=== PATIENT | female | born 1935 | race Hispanic/Latino ===

== ENCOUNTER 2021-11-04 21:04 | Inpatient (IN) | payer MEDICARE ==
--- NOTE | 2021-11-04 21:33 | Emergency Department Report ---
ED Neuro Deficit HPI - General Stated Complaint: AMS Time Seen by Provider: 11/04/21 21:18 Source: family, EMS - History of Present Illness Initial Comments: Patient is 86 years old female with history of dementia, hypertension and diabetes. Patient brought to the emergency room from a local assisted living for evaluation of altered mental status. EMS reported that patient ate dinner and soon later she became unresponsive. Upon arrival to the ER patient is obtunded, responding to painful stimuli. Vital signs stable. Patient responded by screaming and moving her right upper extremity however patient is not moving her left upper extremity. Quick neuro exam showed a left upper extremity drift. I spoke to patient daughter and held at phone #[phone] and she stated that her mother never had a stroke before. She stated that she saw her on and she was in her usual status. She informed that she is a wheelchair patient and she does not walk. She stated that she received a call from assisted living informing her that she is not responding after dinner. She stated that they called her at 8:22 PM tonight. Stroke protocol immediately initiated and patient moved to CT for stat CT brain without contrast and stroke telemetry neurologist immediately consulted. Location: left arm, altered Presenting Symptoms: Present: Weak/Paralyzed One Side - Related Data Allergies/Adverse Reactions: Allergies Allergy/AdvReac Type Severity Reaction Status Date / Time No Known Allergies Allergy Unverified 11/04/21 22:46 ED Review of Systems ROS: Stated complaint: AMS Other details as noted in HPI Comment: Unobtainable due to pts medical conditions ED Neuro Physical Exam - General General appearance: obtunded Suspected Stroke: Yes - Head Head exam: Present: atraumatic, normocephalic, normal inspection - Eye Eye exam: Present: normal appearance - ENT ENT exam: Present: normal exam, normal orophraynx, mucous membranes moist - Neck Neck exam: Present: normal inspection - Respiratory Respiratory exam: Present: normal lung sounds bilaterally. Absent: respiratory distress, wheezes, rales - Cardiovascular Cardiovascular Exam: Present: regular rate, normal rhythm, normal heart sounds - GI/Abdominal GI/Abdominal exam: Present: soft, normal bowel sounds. Absent: distended, te nderness, guarding, rebound, rigid, organomegaly, mass, bruit, pulsatile mass, hernia - Neurological Exam Neurological exam: Present: altered, motor sensory deficit - NIHSS Assessment Interval: Baseline 1a. Level of Consciousness: resp stimuli/obtunded 1b. LOC Questions: answers no questions correctly 1c. LOC Commands: performs no tasks correctly 2. Best Gaze: normal 3. Visual: no visual loss 4. Facial Palsy: normal symmetrical movement 5b. Motor Arm Right: no drift 5a. Motor Arm Left: drift 6a. Motor Leg Left: no gravity effort 6b. Motor Leg Right: no gravity effort 7. Limb Ataxia: absent 8. Sensory: coma/unresponsive 9. Best Language: no aphasia 10. Dysarthria: normal 11. Extinction/Inattention: no abnormality Total Score: 15 Stroke Severity: Moderate Stroke - Psychiatric Psychiatric exam: Present: flat affect - Skin Skin exam: Present: warm ED Course Vital Signs 11/04/21 21:20 Temperature 97.5 F L Pulse Rate 84 Respiratory 20 Rate Blood Pressure 134/69 [Left] O2 Sat by Pulse 98 Oximetry - Lab Data Result diagrams: 11/04/21 21:47 11/04/21 21:47 Lab Results 11/04/21 11/04/21 11/04/21 Range/Units 21:47 21:47 21:47 WBC 10.1 (4.5-11.0) K/mm3 RBC 4.06 (3.65-5.03) M/mm3 Hgb 12.7 (10.1-14.3) gm/dl Hct 36.5 (30.3-42.9) % MCV 90 (79-97) fl MCH 31 (28-32) pg MCHC 35 H (30-34) % RDW 13.7 (13.2-15.2) % Plt Count 173 (140-440) K/mm3 Lymph % (Auto) 10.7 L (13.4-35.0) % Mccone % (Auto) 4.3 (0.0-7.3) % Eos % (Auto) 0.2 (0.0-4.3) % Baso % (Auto) 0.5 (0.0-1.8) % Lymph # (Auto) 1.1 L (1.2-5.4) K/mm3 Mccone # (Auto) 0.4 (0.0-0.8) K/mm3 Eos # (Auto) 0.0 (0.0-0.4) K/mm3 Baso # (Auto) 0.0 (0.0-0.1) K/mm3 Seg Neutrophils % 84.3 H (40.0-70.0) % Seg Neutrophils # 8.5 H (1.8-7.7) K/mm3 PT 14.1 (12.2-14.9) Sec. INR 0.98 (0.87-1.13) APTT 28.6 (24.2-36.6) Sec. Thrombin Time 17.8 (15.1-19.6) Sec. Sodium 140 (137-145) mmol/L Potassium 4.2 (3.6-5.0) mmol/L Chloride 105.3 (98-107) mmol/L Carbon Dioxide 22 (22-30) mmol/L Anion Gap 17 mmol/L BUN 27 H (7-17) mg/dL Creatinine 1.3 H (0.6-1.2) mg/dL Estimated GFR 39 ml/min BUN/Creatinine Ratio 21 % Glucose 229 H (65-100) mg/dL Calcium 8.8 (8.4-10.2) mg/dL Total Bilirubin (0.1-1.2) mg/dL Direct Bilirubin (0-0.2) mg/dL Indirect Bilirubin mg/dL AST (5-40) units/L ALT (7-56) units/L Alkaline Phosphatase (35-129) units/L Total Creatine Kinase 69 (30-135) units/L CK-MB (CK-2) 1.5 (0.0-4.0) ng/mL CK-MB (CK-2) Rel Index 2.1 (0-4) Troponin T < 0.010 (0.00-0.029) ng/mL NT-Pro-B Natriuret Pep (0-900) pg/mL Total Protein (6.3-8.2) g/dL Albumin (3.9-5) g/dL Albumin/Globulin Ratio % Urine Color (Yellow) Urine Turbidity (Clear) Urine pH (5.0-7.0) Ur Specific [place] (1.003-1.030) Urine Protein (Negative) mg/dL Urine Glucose (UA) (Negative) mg/dL Urine Ketones (Negative) mg/dL Urine Blood (Negative) Urine Nitrite (Negative) Urine Bilirubin (Negative) Urine Urobilinogen (<2.0) mg/dL Ur Leukocyte Esterase (Negative) Urine WBC (Auto) (0.0-6.0) /HPF Urine RBC (Auto) (0.0-6.0) /HPF Urine Bacteria (Auto) (Negative) /HPF Urine Mucus /HPF 11/04/21 11/04/21 Range/Units 21:47 Unknown WBC (4.5-11.0) K/mm3 RBC (3.65-5.03) M/mm3 Hgb (10.1-14.3) gm/dl Hct (30.3-42.9) % MCV (79-97) fl MCH (28-32) pg MCHC (30-34) % RDW (13.2-15.2) % Plt Count (140-440) K/mm3 Lymph % (Auto) (13.4-35.0) % Mccone % (Auto) (0.0-7.3) % Eos % (Auto) (0.0-4.3) % Baso % (Auto) (0.0-1.8) % Lymph # (Auto) (1.2-5.4) K/mm3 Mccone # (Auto) (0.0-0.8) K/mm3 Eos # (Auto) (0.0-0.4) K/mm3 Baso # (Auto) (0.0-0.1) K/mm3 Seg Neutrophils % (40.0-70.0) % Seg Neutrophils # (1.8-7.7) K/mm3 PT (12.2-14.9) Sec. INR (0.87-1.13) APTT (24.2-36.6) Sec. Thrombin Time (15.1-19.6) Sec. Sodium (137-145) mmol/L Potassium (3.6-5.0) mmol/L Chloride (98-107) mmol/L Carbon Dioxide (22-30) mmol/L Anion Gap mmol/L BUN (7-17) mg/dL Creatinine (0.6-1.2) mg/dL Estimated GFR ml/min BUN/Creatinine Ratio % Glucose (65-100) mg/dL Calcium (8.4-10.2) mg/dL Total Bilirubin 0.30 (0.1-1.2) mg/dL Direct Bilirubin < 0.2 (0-0.2) mg/dL Indirect Bilirubin 0.1 mg/dL AST 15 (5-40) units/L ALT 18 (7-56) units/L Alkaline Phosphatase 76 (35-129) units/L Total Creatine Kinase (30-135) units/L CK-MB (CK-2) (0.0-4.0) ng/mL CK-MB (CK-2) Rel Index (0-4) Troponin T (0.00-0.029) ng/mL NT-Pro-B Natriuret Pep 185.0 (0-900) pg/mL Total Protein 5.8 L (6.3-8.2) g/dL Albumin 3.6 L (3.9-5) g/dL Albumin/Globulin Ratio 1.6 % Urine Color Yellow (Yellow) Urine Turbidity Hazy (Clear) Urine pH 6.0 (5.0-7.0) Ur Specific [place] 1.025 (1.003-1.030) Urine Protein 100 mg/dl (Negative) mg/dL Urine Glucose (UA) Negative (Negative) mg/dL Urine Ketones Negative (Negative) mg/dL Urine Blood Negative (Negative) Urine Nitrite Positive (Negative) Urine Bilirubin Negative (Negative) Urine Urobilinogen < 2.0 (<2.0) mg/dL Ur Leukocyte Esterase Moderate (Negative) Urine WBC (Auto) 36.0 H (0.0-6.0) /HPF Urine RBC (Auto) 45.0 (0.0-6.0) /HPF Urine Bacteria (Auto) 1+ (Negative) /HPF Urine Mucus Few /HPF - EKG Data -: EKG Interpreted by Wy EKG shows normal: sinus rhythm Rate: normal Interpretation: no acute changes - Radiology Data Radiology results: report reviewed - Medical Decision Making Patient is 86 years old female with history of dementia, hypertension and diabetes. Patient brought to the emergency room from a local assisted living for evaluation of altered mental status. EMS reported that patient ate dinner and soon later she became unresponsive. Upon arrival to the ER patient is obtunded, responding to painful stimuli. Vital signs stable. Patient responded by screaming and moving her right upper extremity however patient is not moving her left upper extremity. Quick neuro exam showed a left upper extremity drift. I spoke to patient daughter and held at phone #[phone] and she stated that her mother never had a stroke before. She stated that she saw her on and she was in her usual status. She informed that she is a wheelchair patient and she does not walk. She stated that she received a call from assisted living informing her that she is not responding after dinner. She stated that they called her at 8:22 PM tonight. Stroke protocol immediately initiated and patient moved to CT for stat CT brain without contrast and stroke telemetry neurologist immediately consulted. As patient coming back from ER nurse noted that patient started moving her left upper extremity. Patient examined by Dr. Robert and stated that patient is not a tPA candidate. CT brain, CTA head and neck is negative for acute finding. Labs reviewed and is unremarkable except for UTI. Patient received Rocephin 1 g IV. I discussed the patient with Dr. Maldonado, he agreed to admit the patient to medical service for further management. Critical Care Time: Yes Critical care time in (mins) excluding proc time.: 35 Critical care attestation.: If time is entered above; I have spent that time in minutes in the direct care of this critically ill patient, excluding procedure time. ED Disposition Clinical Impression: Acute metabolic encephalopathy, TIA (transient ischemic attack) Disposition: ADMITTED INPATIENT Is pt being admited?: Yes Condition: Stable
--- NOTE | 2021-11-04 21:58 | Cat Scan Report ---
NONENHANCED CT SCAN OF THE HEAD: INDICATION / CLINICAL INFORMATION: 86 years Female; CODE STROKE PROTOCOL!!! Stroke-Like symptoms. TECHNIQUE: Routine CT head without contrast. All CT scans at this location are performed using CT dos e reduction for ALARA by means of automated exposure control. COMPARISON: None. FINDINGS: BRAIN / INTRACRANIAL CONTENTS: No intracerebral hemorrhage or stroke mimics No acute hemorrhage, mass effect, midline shift, hydrocephalus, or acute, large territorial infarct. Moderate cortical involution; periventricular low-attenuation areas due to chronic small vessel dise ase CRANIOCERVICAL JUNCTION: No significant abnormality. ORBITS: No significant abnormality of visualized orbits. SINUSES / MASTOIDS: No significant abnormality of the visualized paranasal sinuses or mastoid air shaan ls. ADDITIONAL FINDINGS: None. IMPRESSION: No intracerebral hemorrhage or stroke mimics No CT findings to suggest acute territorial infarction Signer Name: Lena Martines MD Signed: 11/04/2021 9:54 PM Workstation Name: [id number]
--- NOTE | 2021-11-04 22:01 | XRay Report ---
CHEST 1 VIEW 11/04/2021 8:54 PM INDICATION / CLINICAL INFORMATION: stroke, AMS. COMPARISON: None available. FINDINGS: SUPPORT DEVICES: None. HEART / MEDIASTINUM: No significant abnormality. LUNGS / PLEURA: There is moderate pulmonary vascular indistinctness. No pneumothorax. ADDITIONAL FINDINGS: No significant additional findings. IMPRESSION: 1. Moderate pulmonary edema. Signer Name: Vaibhav Lee DO Signed: 11/04/2021 9:56 PM Workstation Name: [id number]
[2021-11-04 22:03] LABS: Basophils % (Auto) 0.5 % (0.0-1.8); Eosinophils % (Auto) 0.2 % (0.0-4.3); Hematocrit 36.5 % (30.3-42.9); Hemoglobin 12.7 gm/dl (10.1-14.3); Lymphocytes # (Auto) 1.1 K/mm3 (1.2-5.4); Lymphocytes % (Auto) 10.7 % (13.4-35.0); Mean Corpuscular HGB Conc 35 % (30-34); Mean Corpuscular Volume 90 fl (79-97); Monocytes # (Auto) 0.4 K/mm3 (0.0-0.8); Monocytes % (Auto) 4.3 % (0.0-7.3); Platelet Count 173 K/mm3 (140-440); Red Blood Count 4.06 M/mm3 (3.65-5.03); Red Cell Distribution Width 13.7 % (13.2-15.2)
--- NOTE | 2021-11-04 22:04 | Consultation ---
Physical Examination - Vital Signs Vital Signs: Vital Signs Temp Pulse Resp BP Pulse Ox 97.5 F L 84 20 134/69 98 11/04/21 21:20 11/04/21 21:20 11/04/21 21:20 11/04/21 21:20 11/04/21 21:20 Results - Laboratory Findings CBC and BMP: 11/04/21 21:47 Abnormal Lab Findings: Abnormal Labs 11/04/21 21:47 MCHC 35 H Lymph % (Auto) 10.7 L Lymph # (Auto) 1.1 L Seg Neutrophils % 84.3 H Seg Neutrophils # 8.5 H Assessment and Plan [facility] Consult Note # Demographics Consult Type: Acute Stroke Level 1 (0-4.5 hrs) Patient Location: Emergency Room First Name: Candida Last Name: Date of : 1935 Age: 86 Gender: Female Facility: [facility] Time of Initial Page ( Time): 11/04/2021, 21:28 Time of Return Call ( Time): 11/04/2021, 21:29 # HPI History: 86F with last well 20:20 reportedly, then with not responsive. Now screaming and moving all extremities, left weakness noted. Dementia and wheelchair baseline in MENG. Seen on normal. # Scores Time of exam and NIHSS ( Time): 11/04/2021, 21:54 Level of Consciousness 1a: [1] = Not alert; but arousable by minor stim LOC Questions 1b: [2] = Answers neither correctly LOC Commands 1c: [1] = Performs one correctly Best Gaze 2: [0] = Normal Visual 3: [0] = No visual loss Facial Palsy 4: [0] = Normal symmetrical movements Motor Arm Left 5a: [1] = Drift Motor Arm Right 5b: [1] = Drift Motor Leg Left 6a: [3] = No effort against gravity Motor Leg Right 6b: [3] = No effort against gravity Limb Ataxia 7: [0] = Absent Sensory 8: [0] = Normal Best Language 9: [0] = No aphasia Dysarthria 10: [2] = Severe dysarthria Extinction and Inattention 11: [0] = No abnormality NIHSS Total: 14 # PMH-FH-SH Past Medical History: dementia Social History: assisted living non-ambulatory at baseline # Data Head CT: no bleed preliminarily reviewed by me, please refer to radiology read for official reading CTA Head: no large vessel occlusion preliminarily reviewed by me, please refer to radiology read for official reading # Assessment Impression: Altered Mental Status No focal neurologic deficit, most consistent with encephalopathy with available data and imaging, risk > benefit for IV tAP with available data. # Plan Thrombolytic/Intervention: NOT IV Thrombolysis or IA Intervention candidate Thrombolytic Exclusion: other (see below) risk > benefit. Intraarterial Exclusion: no large vessel occlusion (LVO) pending formal radiology review of CTA Imaging: (urgency: routine): MRI Brain without contrast Other: telemetry monitoring would not pursue stroke work-up if MRI is negative I have discussed my recommendations with the referring provider Disposition: admit # [employer] Telemedicine: Interactive 2 way audio and visual telecommunication technology was utilized during this visit
--- NOTE | 2021-11-04 22:05 | Cat Scan Report ---
Please refer to the report of the CTA of the head Signer Name: Lena Martines MD Signed: 11/04/2021 10:00 PM Workstation Name: [id number]
--- NOTE | 2021-11-04 22:05 | Cat Scan Report ---
CTA NECK WITH CONTRAST HISTORY: "Stroke COMPARISON: None. TECHNIQUE: Routine CTA of the neck was performed. 3-D/MIP reformats were postprocessed. Percentage s tenosis is determined by direct quantitative measurements of diseased internal carotid artery diamete r compared with normal distal internal carotid artery reference segments or by criteria similar to NA SCET where applicable.All CT scans at this location are performed using CT dose reduction for ALARA b y means of automated exposure control CONTRAST: 100 ml of Omnipaque 350 FINDINGS: Aortic arch: No significant abnormality. Cervical vertebral arteries: No significant abnormality. Common carotid arteries: No significant abnormality. Carotid bifurcations: Normal Cervical internal carotid arteries: No significant abnormality. Additional findings: None. IMPRESSION: 1. No significant abnormality. CTA HEAD WITH CONTRAST TECHNIQUE: Routine non-contrast CT Head, CTA of the head and post-contrast CT Head are performed. 3-D /MIP reformats postprocessed. All CT scans at this location are performed using CT dose reduction for ALARA by means of automated exposure control FINDINGS: CTA Head: Intracranial vertebral arteries: No significant abnormality. Basilar artery: No significant abnormality. Posterior cerebral arteries: No significant abnormality. Intracranial internal carotid arteries: No significant abnormality. Bilateral symmetric vascular calc ification Anterior cerebral arteries: No significant abnormality. Middle cerebral arteries: No significant abnormality. Dural venous sinuses:Not optimally opacified. No significant abnormality. Additional findings: None. IMPRESSION: 1. No significant abnormality. Signer Name: Lena Martines MD Signed: 11/04/2021 10:00 PM Workstation Name: [id number]
[2021-11-04 22:20] LABS: INR 0.98 (0.87-1.13)
[2021-11-04 22:21] LABS: Creatine Kinase MB 1.5 ng/mL (0.0-4.0); Partial Thromboplastin Time 28.6 Sec. (24.2-36.6); Thrombin Time 17.8 Sec. (15.1-19.6)
[2021-11-04 22:22] LABS: Alanine Aminotransferase 18 units/L (7-56); Albumin 3.6 g/dL (3.9-5); BUN/Creatinine Ratio 21; Blood Urea Nitrogen 27 mg/dL (7-17); Calcium 8.8 mg/dL (8.4-10.2); Hemolysis Index 16
[2021-11-04 22:29] LABS: Bilirubin,Direct < 0.2 mg/dL (0-0.2)
[2021-11-04 23:07] LABS: Bilirubin,Urine Negative (Negative); Color,Urine Yellow (Yellow)
[2021-11-04 23:08] LABS: Bacteria,Urine 1+ /HPF (Negative); Blood,Urine Negative (Negative); Mucus,Urine FEW /HPF
[2021-11-04 23:09] LABS: Urobilinogen,Urine < 2.0 mg/dL (<2.0)
[2021-11-04] MEDS ORDERED: cefTRIAXone/NS 1 GM/50 ML 1 GM/50 ML BAG IV ONE (23:31)
[2021-11-05] MEDS ORDERED: MORPHINE 4 MG/1 ML INJ IV PRN (03:39)
[2021-11-05] MEDS ORDERED: ONDANSETRON 4 MG/2 ML INJ IV PRN (03:39)
[2021-11-05] MEDS ORDERED: DEXTROSE 50% IN WATER (25GM) 50 ML SYRINGE IV PRN (03:39)
[2021-11-05] MEDS ORDERED: MORPHINE 2 MG/1 ML INJ IV PRN (03:39)
[2021-11-05] MEDS ORDERED: ALBUTEROL 2.5 MG/3 ML NEBU IH PRN (03:39)
[2021-11-05] MEDS ORDERED: ACETAMINOPHEN 325 MG TAB PO PRN (03:39)
[2021-11-05] MEDS ORDERED: SODIUM CHLORIDE 0.9% 1000 ML 1,000 ML IV SCH (03:45)
--- NOTE | 2021-11-05 03:49 | History and Physical Report ---
History of Present Illness Date of examination: 11/05/21 Date of admission: 11/05/21 Chief complaint: Altered mental status History of present illness: 86 years old female with history of dementia, hypertension and diabetes was brought to the emergency room from a local assisted living for evaluation of altered mental status. patient ate dinner and soon later she became unresponsive. Upon arrival to the ER patient is obtunded, responding to painful stimuli. Vital signs stable. Patient responded by screaming and moving her right upper extremity however patient is not moving her left upper extremity. Quick neuro exam showed a left upper extremity drift. I spoke to patient daughter and held at phone #[phone] and she stated that her mother never had a stroke before. She stated that she saw her on and she was in her usual status. She informed that she is a wheelchair patient and she does not walk. She stated that she received a call from assisted living informing her that she is not responding after dinner. She stated that they called her at 8:22 PM tonight. Stroke protocol immediately initiated and patient moved to CT for stat CT brain without contrast and stroke telemetry neurologist immediately consulted. As patient coming back from ER nurse noted that patient started moving her left upper extremity. Patient examined by Dr. Robert and stated that patient is not a tPA candidate. CT brain, CTA head and neck is negative for acute finding. Labs reviewed and is unremarkable except for UTI. Patient received Rocephin 1 g IV. Will admit the patient put the patient on antibiotic and CVA pathway Past History Past Medical History: diabetes (Dementia), hypertension, other Past Surgical History: No surgical history Social history: no significant social history Family history: hypertension Medications and Allergies Allergies Allergy/AdvReac Type Severity Reaction Status Date / Time No Known Allergies Allergy Unverified 11/04/21 22:46 Active Meds: Active Medications Acetaminophen (Acetaminophen 325 Mg Tab) 650 mg PO Q4H PRN PRN Reason: Pain MILD(1-3)/Fever >100.5/GARRIDO Albuterol (Albuterol 2.5 Mg/3 Ml Nebu) 2.5 mg IH Q3HRT PRN PRN Reason: Shortness Of Breath Albuterol/Ipratropium (Ipratropium/Albuterol Sulfate 3 Ml Ampul.Neb) 1 ampul IH Q6HRT [facility] Dextrose (Dextrose 50% In Water (25gm) 50 Ml Syringe) 50 ml IV Q30MIN PRN; Protocol PRN Reason: Hypoglycemia Famotidine (Famotidine 20 Mg/2 Ml Inj) 20 mg IV BID [facility] Heparin Sodium (Porcine) (Heparin 5,000 Unit/1 Ml Vial) 5,000 unit SUB-Q Q12HR [facility] Sodium Chloride (Nacl 0.9% 1000 Ml) 1,000 mls @ 100 mls/hr IV DIRECT [facility] Ceftriaxone Sodium (Rocephin/Ns 2 Gm/100 Ml) 2 gm in 100 mls @ 200 mls/hr IV Q24H MANUEL; Protocol Insulin Human Lispro (Insulin Lispro 100 Unit/Ml) 0 unit SUB-Q Q6HR MANUEL; Protocol Morphine Sulfate (Morphine 2 Mg/1 Ml Inj) 2 mg IV Q4H PRN PRN Reason: Pain, Moderate (4-6) Morphine Sulfate (Morphine 4 Mg/1 Ml Inj) 4 mg IV Q4H PRN PRN Reason: Pain , Severe (7-10) Ondansetron HCl (Ondansetron 4 Mg/2 Ml Inj) 4 mg IV Q8H PRN PRN Reason: Nausea And Vomiting Sodium Chloride (Sodium Chloride 0.9% 10 Ml Flush Syringe) 10 ml IV BID [facility] Sodium Chloride (Sodium Chloride 0.9% 10 Ml Flush Syringe) 10 ml IV PRN PRN PRN Reason: LINE FLUSH Sodium Chloride (Sodium Chloride 0.9% 10 Ml Flush Syringe) 10 ml INJ PRN PRN PRN Reason: LINE FLUSH Review of Systems All systems: negative Constitutional: weakness, malaise, other (Altered mental status) Exam - Constitutional Vitals: Temp Pulse Resp BP Pulse Ox 97.5 F L 84 20 134/69 98 11/04/21 21:20 11/04/21 21:20 11/04/21 21:20 11/04/21 21:20 11/04/21 21:20 General appearance: Present: no acute distress, well-nourished - EENT Eyes: Present: PERRL ENT: hearing intact, clear oral mucosa - Neck Neck: Present: supple, normal ROM - Respiratory Respiratory effort: normal Respiratory: bilateral: CTA - Cardiovascular Heart Sounds: Present: S1 & S2. Absent: rub, click - Extremities Extremities: pulses symmetrical, No edema Peripheral Pulses: within normal limits - Abdominal General gastrointestinal: Present: soft, non-tender, non-distended, normal bowel sounds Female genitourinary: Present: normal - Integumentary Integumentary: Present: clear, warm, dry - Musculoskeletal Musculoskeletal: gait normal, strength equal bilaterally - Psychiatric Psychiatric: other (Patient is altered mental status) - Neurologic Neurologic: CNII-XII intact, moves all extremities, other (Patient is altered mental status) HEART Score - HEART Score Troponin: Troponin T < 0.010 ng/mL (0.00-0.029) 11/04/21 21:47 Results - Labs CBC & Chem 7: 11/04/21 21:47 11/04/21 21:47 Labs: Laboratory Last Values WBC 10.1 K/mm3 (4.5-11.0) 11/04/21 21:47 RBC 4.06 M/mm3 (3.65-5.03) 11/04/21 21:47 Hgb 12.7 gm/dl (10.1-14.3) 11/04/21 21:47 Hct 36.5 % (30.3-42.9) 11/04/21 21:47 MCV 90 fl (79-97) 11/04/21 21:47 MCH 31 pg (28-32) 11/04/21 21:47 MCHC 35 % (30-34) H 11/04/21 21:47 RDW 13.7 % (13.2-15.2) 11/04/21 21:47 Plt Count 173 K/mm3 (140-440) 11/04/21 21:47 Lymph % (Auto) 10.7 % (13.4-35.0) L 11/04/21 21:47 [place] % (Auto) 4.3 % (0.0-7.3) 11/04/21 21:47 Eos % (Auto) 0.2 % (0.0-4.3) 11/04/21 21:47 Baso % (Auto) 0.5 % (0.0-1.8) 11/04/21 21:47 Lymph # (Auto) 1.1 K/mm3 (1.2-5.4) L 11/04/21 21:47 [place] # (Auto) 0.4 K/mm3 (0.0-0.8) 11/04/21 21:47 Eos # (Auto) 0.0 K/mm3 (0.0-0.4) 11/04/21 21:47 Baso # (Auto) 0.0 K/mm3 (0.0-0.1) 11/04/21 21:47 Seg Neutrophils % 84.3 % (40.0-70.0) H 11/04/21 21:47 Seg Neutrophils # 8.5 K/mm3 (1.8-7.7) H 11/04/21 21:47 PT 14.1 Sec. (12.2-14.9) 11/04/21 21:47 INR 0.98 (0.87-1.13) 11/04/21 21:47 APTT 28.6 Sec. (24.2-36.6) 11/04/21 21:47 Thrombin Time 17.8 Sec. (15.1-19.6) 11/04/21 21:47 Sodium 140 mmol/L (137-145) 11/04/21 21:47 Potassium 4.2 mmol/L (3.6-5.0) 11/04/21 21:47 Chloride 105.3 mmol/L (98-107) 11/04/21 21:47 Carbon Dioxide 22 mmol/L (22-30) 11/04/21 21:47 Anion Gap 17 mmol/L 11/04/21 21:47 BUN 27 mg/dL (7-17) H 11/04/21 21:47 Creatinine 1.3 mg/dL (0.6-1.2) H 11/04/21 21:47 Estimated GFR 39 ml/min 11/04/21 21:47 BUN/Creatinine Ratio 21 % 11/04/21 21:47 Glucose 229 mg/dL (65-100) H 11/04/21 21:47 Calcium 8.8 mg/dL (8.4-10.2) 11/04/21 21:47 Total Bilirubin 0.30 mg/dL (0.1-1.2) 11/04/21 21:47 Direct Bilirubin < 0.2 mg/dL (0-0.2) 11/04/21 21:47 Indirect Bilirubin 0.1 mg/dL 11/04/21 21:47 AST 15 units/L (5-40) 11/04/21 21:47 ALT 18 units/L (7-56) 11/04/21 21:47 Alkaline Phosphatase 76 units/L (35-129) 11/04/21 21:47 Total Creatine Kinase 69 units/L (30-135) 11/04/21 21:47 CK-MB (CK-2) 1.5 ng/mL (0.0-4.0) 11/04/21 21:47 CK-MB (CK-2) Rel Index 2.1 (0-4) 11/04/21 21:47 Troponin T < 0.010 ng/mL (0.00-0.029) 11/04/21 21:47 NT-Pro-B Natriuret Pep 185.0 pg/mL (0-900) 11/04/21 21:47 Total Protein 5.8 g/dL (6.3-8.2) L 11/04/21 21:47 Albumin 3.6 g/dL (3.9-5) L 11/04/21 21:47 Albumin/Globulin Ratio 1.6 % 11/04/21 21:47 Urine Color Yellow (Yellow) 11/04/21 Unknown Urine Turbidity Hazy (Clear) 11/04/21 Unknown Urine pH 6.0 (5.0-7.0) 11/04/21 Unknown Ur Specific [place] 1.025 (1.003-1.030) 11/04/21 Unknown Urine Protein 100 mg/dl mg/dL (Negative) 11/04/21 Unknown Urine Glucose (UA) Negative mg/dL (Negative) 11/04/21 Unknown Urine Ketones Negative mg/dL (Negative) 11/04/21 Unknown Urine Blood Negative (Negative) 11/04/21 Unknown Urine Nitrite Positive (Negative) 11/04/21 Unknown Urine Bilirubin Negative (Negative) 11/04/21 Unknown Urine Urobilinogen < 2.0 mg/dL (<2.0) 11/04/21 Unknown Ur Leukocyte Esterase Moderate (Negative) 11/04/21 Unknown Urine WBC (Auto) 36.0 /HPF (0.0-6.0) H 11/04/21 Unknown Urine RBC (Auto) 45.0 /HPF (0.0-6.0) 11/04/21 Unknown Urine Bacteria (Auto) 1+ /HPF (Negative) 11/04/21 Unknown Urine Mucus Few /HPF 06/01/22 Unknown - Imaging and Cardiology CT Scan - head: report reviewed Assessment and Plan VTE prophylaxis?: Chemical Plan of care discussed with patient/family: Yes - Patient Problems (1) Acute metabolic encephalopathy Current Visit: Yes Status: Acute Plan to address problem: Admit the patient to the medical telemetry. Metabolic encephalopathy secondary to UTI and suspected TIA. We put the patient on aspirin 325 mg p.o. daily. Lipitor 40 mg p.o. daily. Rocephin 2 g IV daily. Would send urine for culture. We also do MRI of the brain (2) UTI (urinary tract infection) Current Visit: Yes Status: Acute Plan to address problem: Rocephin 2 g IV daily. We sent the blood and urine for culture. Recheck CBC in the morning (3) TIA (transient ischemic attack) Current Visit: Yes Status: Acute Plan to address problem: Aspirin 325 mg p.o. daily. Lipitor 40 mg p.o. daily. PT OT any speech evaluation. MRI of the brain and MRA of the brain and neck with and without contrast. Echocardiogram. Consult neurology if needed (4) Diabetes Current Visit: Yes Status: Acute Plan to address problem: Accu-Chek every 6 hours with Humalog moderate dose coverage. Diabetic education. Recheck BMP in the morning (5) Hypertension Current Visit: Yes Status: Acute Plan to address problem: Hydralazine 10 mg IV every 6 hours as needed. We continue the home medication (6) Dementia Current Visit: Yes Status: Acute Plan to address problem: Is stable. We will continue the home medication. Consult neurology if needed (7) DVT prophylaxis Current Visit: Yes Status: Acute Plan to address problem: Heparin 5000 units subcu every 12 hours for DVT prophylaxis. Pepcid 20 mg IV every 12 hours for GI prophylaxis. Patient is a full code
[2021-11-05] MEDS: INSULIN LISPRO 100 UNIT/ML SUB-Q SCH ×3 (06:52→20:36)
[2021-11-05] MEDS ORDERED: IPRATROPIUM/ALBUTEROL SULFATE 3 ML AMPUL.NEB IH SCH (08:00)
[2021-11-05] MEDS: HEPARIN 5,000 UNIT/1 ML VIAL SUB-Q SCH ×2 (09:23→22:05)
[2021-11-05] MEDS: FAMOTIDINE 20 MG/2 ML INJ IV SCH ×2 (09:23→22:05)
[2021-11-05] MEDS ORDERED: ASPIRIN 325 MG TAB PO SCH (10:00)
[2021-11-05] MEDS ORDERED: cefTRIAXone/NS 1 GM/50 ML 1 GM/50 ML BAG IV SCH (10:00)
--- NOTE | 2021-11-05 10:15 | Electrocardiograph Report ---
[facility] Test Date: 2021-11-04 Test Time: 22:19:28 Pat Name: YANNA MOCTEZUMA Department: Room: A468 1 Gender: F Cryptographic Clerk: KALYAN : 1935 Requested By: SENA PADRON Order Number: [id number] Reading MD: Chap[place] Christine Measurements Intervals [place] Rate: 93 P: 44 AR: 166 QRS: -15 QRSD: 92 T: 72 QT: 376 QTc: 467 Interpretive Statements Sinus rhythm Ventricular premature complex nonspecific st-t No previous ECG available for comparison Electronically Signed On 11-05-2021 10:14:55 EDT by Chapincito Christine
--- NOTE | 2021-11-05 11:34 | Magnetic Resonance Report ---
MR brain wo con INDICATION / CLINICAL INFORMATION: stroke, ams, weakness. TECHNIQUE: Multiplanar, multisequence MR images of the brain were obtained. COMPARISON: 11/04/2021 FINDINGS: INTRACRANIAL: No restricted diffusion. No hemorrhage. Ventricular caliber is normal. No extra-axial c ollection. No mass. No herniation. Major intracranial vascular flow voids are preserved. Small quant ity of periventricular and centrum semiovale T2 white matter hyperintensities most consistent with se quela of chronic microvascular disease. ORBITS: No significant abnormality of visualized orbits. SINUSES / MASTOIDS: No significant abnormality of visualized sinuses and mastoid air cells. ADDITIONAL FINDINGS: None. IMPRESSION: 1. No acute or significant intracranial abnormality. Signer Name: Jignesh Galaviz MD Signed: 11/05/2021 11:30 AM Workstation Name: [id number]
--- NOTE | 2021-11-05 12:00 | Event Note ---
Date: 11/05/21 Patient was evaluated this morning, she was found to be hemodynamically stable. #Acute metabolic encephalopathy #Acute cystitis without hematuria #Transient ischemic attackruled out #Acute ischemic CVAruled out Review of medical records and conversation with daughter both indicate the patient has had multiple hospitalizations for acute metabolic encephalopathy secondary to acute cystitis Unremarkable CT head noncontrast, CTA head and neck, and MRI brain. Discontinuing atorvastatin 40 mg daily and aspirin 325 mg daily. Urinalysis revealing positive nitrates, moderate leukocyte esterase, WBC 36, and 1+ bacteria. Pending urine culture. Continue Rocephin 2 g daily for total of 7-day course (completes on 11/12/2021). Continue to monitor #Likely SKIP secondary to vasomotor nephropathy Creatinine 1.3 (baseline unknown) which is elevated given her age and size. Likely secondary to altered mentation and decreased p.o. intake. Encourage increased p.o. intake. Avoid nephrotoxic drugs and renally dose meds. #Non-insulin dependent type II diabetes mellitus - hemoglobin A1c: unknown - home regimen: unknown - current regimen: moderate SSi - blood glucose goal 140-180 while inpatient - continue to monitor #Hypertension - home medications: unknown - current medications: currently holding as the patient is normotensive - SBP goal <160 and DBP goal <90 while inpatient - continue to monitor #Dementia Daughter endorses baseline dementia. Continue to orient patient by opening blinds during the day, turning off TV at approximately 10 PM, closing blinds at night. #Mild protein caloric malnutrition Albumin 3.6 Starting dietary supplementation #Obesity #Weight loss counseling #Exercise counseling - BMI 34.2 - Counseled patient on the importance of weight loss, incorporating exercise, and dietary changes (lean meats, fresh fruits and vegetables, and water intake). Patient expresses understanding. - Time: +15 min #Coordination of CARE time: 30 minutes. Total visit time equals 30 or more minutes with greater than 50% spent [id number] on coordination of care and counseling. #Advanced care planning -Disease education conducted, care plan discussed, diagnoses discussed, prognosis discussed, and patient acknowledges understanding with care plan -Time: +30 min #Discharge planning - Patient is pending 24 hours of IV antibiotics. - Case management has been made aware. - Discharge is tentatively tomorrow.
[2021-11-06] MEDS: INSULIN LISPRO 100 UNIT/ML SUB-Q SCH ×2 (01:43→06:46)
[2021-11-06 05:34] LABS: Basophils % (Auto) 0.2 % (0.0-1.8); Hematocrit 46.4 % (30.3-42.9); Hemoglobin 15.8 gm/dl (10.1-14.3); Lymphocytes # (Auto) 0.5 K/mm3 (1.2-5.4); Lymphocytes % (Auto) 5.5 % (13.4-35.0); Mean Corpuscular HGB Conc 34 % (30-34); Mean Corpuscular Volume 89 fl (79-97); Monocytes # (Auto) 0.4 K/mm3 (0.0-0.8); Monocytes % (Auto) 4.7 % (0.0-7.3); Platelet Count 161 K/mm3 (140-440); Red Blood Count 5.19 M/mm3 (3.65-5.03); Red Cell Distribution Width 13.7 % (13.2-15.2)
[2021-11-06 05:58] LABS: Chol/HDL Ratio 3.45 %
[2021-11-06] MEDS ORDERED: INSULIN NPH/REGULAR 70/30 INJ SUB-Q SCH (08:00)
[2021-11-06] MEDS ORDERED: levoFLOXacin 750 MG TAB PO SCH (10:00)
[2021-11-06] MEDS: HEPARIN 5,000 UNIT/1 ML VIAL SUB-Q SCH (11:03)
[2021-11-06] MEDS: FAMOTIDINE 20 MG/2 ML INJ IV SCH (11:04)
--- NOTE | 2021-11-06 11:10 | Discharge Summary ---
Providers - Providers Date of Admission: 11/05/21 03:39 Date of discharge: 11/06/21 Attending physician: NEHA EDWARDS MD 11/05/21 03:40 Consult to Dietitian/Nutrition [CONS] Routine Physician Instructions: Reason For Exam: Reason for Consult: Diet education 11/05/21 07:55 Consult to Dietitian/Nutrition [CONS] Routine Physician Instructions: Reason For Exam: Reason for Consult: Poor oral intake 11/05/21 19:49 Speech Therapy Evaluation and Treat [CONS] Routine Reason For Exam: RADHA Primary care physician: TOOL LAPPER [facility] Hospitalization Reason for admission: Acute metabolic encephalopathy, acute cystitis without hematuria Condition: Stable Pertinent studies: Reviewed. Procedures: None. Hospital course: Patient is a 86-year-old female past medical history of dementia, hypertension, insulin-dependent type 2 diabetes mellitus with hyperglycemia, and obesity who presented to the ED after acute altered mental status that began shortly after eating dinner. It was reported that the patient became unresponsive. The dena márquez was transported from her assisted to the ED via EMS. Upon examination, the patient was found to be hemodynamically stable; however, she displayed a left upper extremity drift that was concerning for acute ischemic CVA. Patient was evaluated by telemetry neurology that did not find the patient be a candidate for tPA. The patient was found to have unremarkable CT head noncontrast and CT angio head and neck. The patient was remarkable for having acute cystitis without hematuria. The patient was initiated on Rocephin 1 g in the ED. The patient was admitted for further management of acute metabolic encephalopathy secondary to acute cystitis without hematuria and further work-up of CVA pathway. Patient underwent MRI brain without contrast that was found to be unremarkable. The patient continued with IV antibiotics, and she has since returned to her baseline. The patient's daughter revealed that she has been hospitalized multiple times in the previous 5 years for altered mental status found to be secondary to acute cystitis. The patient was transitioned from ceftriaxone to p.o. Levaquin, and she will complete her 5-day antibiotic course upon discharge. Patient's daughter has been made aware of her pending discharge. Patient is medically clear for discharge. Disposition: 01 HOME / SELF CARE / HOMELESS Final Discharge Diagnosis (Prints w/discharge instructions): Acute metabolic encephalopathy, acute cystitis without hematuria, likely SKIP secondary to vasomotor nephropathy, insulin-dependent type 2 diabetes mellitus, hypertension, dementia, mild protein caloric malnutrition, obesity. Time spent for discharge: 45 min Core Measure Documentation - Palliative Care Palliative Care/ Comfort Measures: Not Applicable - Core Measures Any of the following diagnoses?: none Exam - Constitutional Vitals: Temp Pulse Resp BP Pulse Ox 98.0 F 95 H 18 169/81 95 11/06/21 08:34 11/06/21 08:34 11/06/21 08:34 11/06/21 08:34 11/06/21 08:34 General appearance: Present: no acute distress, obese - EENT Eyes: Present: PERRL, EOM intact ENT: hearing intact, clear oral mucosa, poor dentition, edentulous - Neck Neck: Present: supple, normal ROM - Respiratory Respiratory effort: normal Respiratory: bilateral: diminished - Cardiovascular Rhythm: regular Heart Sounds: Present: S1 & S2 - Extremities Extremities: no ischemia, pulses intact, pulses symmetrical, No edema, normal temperature, normal color Peripheral Pulses: within normal limits - Abdominal General gastrointestinal: Present: soft, non-tender, non-distended, normal bowel sounds Female genitourinary: Present: deferred - Rectal Rectal Exam: deferred - Integumentary Integumentary: Present: clear, warm, dry - Musculoskeletal Musculoskeletal: generalized weakness - Psychiatric Psychiatric: appropriate mood/affect, cooperative, other (dementia at baseline) - Neurologic Neurologic: CNII-XII intact - Allied Health Allied health notes reviewed: nursing Plan Activity: no restrictions Diet: low salt, diabetic Additional Instructions: Patient is a 86-year-old female past medical history of dementia, hypertension, insulin-dependent type 2 diabetes mellitus with hyperglycemia, and obesity who presented to the ED after acute altered mental status that began shortly after eating dinner. It was reported that the patient became unresponsive. The patient was transported from her assisted to the ED via EMS. Upon examination, the patient was found to be hemodynamically stable; however, she displayed a left upper extremity drift that was concerning for acute ischemic CVA. Patient was evaluated by telemetry neurology that did n ot find the patient be a candidate for tPA. The patient was found to have unremarkable CT head noncontrast and CT angio head and neck. The patient was remarkable for having acute cystitis without hematuria. The patient was initiated on Rocephin 1 g in the ED. The patient was admitted for further management of acute metabolic encephalopathy secondary to acute cystitis without hematuria and further work-up of CVA pathway. Patient underwent MRI brain without contrast that was found to be unremarkable. The patient continued with IV antibiotics, and she has since returned to her baseline. The patient's daughter revealed that she has been hospitalized multiple times in the previous 5 years for altered mental status found to be secondary to acute cystitis. The patient was transitioned from ceftriaxone to p.o. Levaquin, and she will complete her 5-day antibiotic course upon discharge. Patient's daughter has been made aware of her pending discharge. Patient is medically clear for disc harge. Care Plan Goals: Patient is medically clear for discharge. Assessment: Patient is a 86-year-old female past medical history of dementia, hypertension, insulin-dependent type 2 diabetes mellitus with hyperglycemia, and obesity who presented to the ED after acute altered mental status that began shortly after eating dinner. It was reported that the patient became unresponsive. The patient was transported from her assisted to the ED via EMS. Upon examination, the patient was found to be hemodynamically stable; however, she displayed a left upper extremity drift that was concerning for acute ischemic CVA. Patient was evaluated by telemetry neurology that did not find the patient be a candidate for tPA. The patient was found to have unremarkable CT head noncontrast and CT angio head and neck. The patient was remarkable for having acute cystitis without hematuria. The patient was initiated on Rocephin 1 g in the ED. The patient was admitted for further management of acute metabolic encephalopathy secondary to acute cystitis without hematuria and further work-up of CVA pathway. Patient underwent MRI brain without contrast that was found to be unremarkable. The patient continued with IV antibiotics, and she has since returned to her baseline. The patient's daughter revealed that she has been hospitalized multiple times in the previous 5 years for altered mental status found to be secondary to acute cystitis. The patient was transitioned from ceftriaxone to p.o. Levaquin, and she will complete her 5-day antibiotic course upon discharge. Patient's daughter has been made aware of her pending discharge. Patient is medically clear for discharge. Follow up with: PRIMARY CAREMD [Primary Care Provider] - 3-5 Days Prescriptions: levoFLOXacin [Levaquin TAB] 750 mg PO Q24HR #3 tablet
[2021-11-06 15:50] VITALS: BP 109/73
== END 2021-11-06 18:00 | disposition home or self-care (01) | DRG 689 ==
LOC: ED 21:04 → 4A 11-05 03:39
PROVIDERS: ADMIT Hospitalist; ATTEND Student in an Organized Health Care Education/Training Program
DX: N30.00 Acute cystitis without hematuria (principal); G93.41 Metabolic encephalopathy; N17.0 Acute kidney failure with tubular necrosis; G45.9 Transient cerebral ischemic attack, unspecified; E44.1 Mild protein-calorie malnutrition; Z20.822 Contact with and (suspected) exposure to COVID-19; E11.9 Type 2 diabetes mellitus without complications; E66.9 Obesity, unspecified; I10 Essential (primary) hypertension; F03.90 Unspecified dementia, unspecified severity, without behavioral disturbance, psychotic disturbance, mood disturbance, and anxiety; Z82.49 Family history of ischemic heart disease and other diseases of the circulatory system; Z79.899 Other long term (current) drug therapy; Z68.34 Body mass index [BMI] 34.0-34.9, adult
CPT/HCPCS: 36415; 70450; 70496; 70498; 70551; 71045; 80048; 80061; 80076; 81001; 82550; 82553; 82962; 83880; 84484; 85025; 85610; 85670; 85730; 87040; 87086; 93005; 93306; 94640; G0378; J3490; Q0177; Q9967; C8929; J0696; J1644; J1815; J2270; J2405; J7030; U0003

== ENCOUNTER 2021-11-13 07:47 | Inpatient (IN) | payer MEDICARE ==
[2021-11-13] MEDS ORDERED: ONDANSETRON 4 MG/2 ML INJ IV ONE (08:27)
--- NOTE | 2021-11-13 08:29 | Emergency Department Report ---
HPI - General Chief Complaint: Altered Mental Status Time Seen by Provider: 11/13/21 08:11 - HPI HPI: Room 22 The patient is an 86-year-old female sent from halfway for altered mental status. Per EMS the patient's last known well time was 04: 00 this morning. Staff then found the patient slow to respond and EMS was called. In the ED the patient appears to have left periorbital ecchymosis and moans and mumbles responses with tactile stimuli. Patient does not answer questions. Patient was reportedly vomiting when EMS arrived on scene ED Past Medical Hx - Past Medical History Hx Hypertension: Yes Hx Diabetes: Yes Hx Dementia: Yes - Surgical History Past Surgical History?: No - Family History Family history: no significant - Social History Smoking Status: Unknown if ever smoked Substance Use Type: None - Medications Home Medications: Home Medications Medication Instructions Recorded Confirmed Last Taken Type levoFLOXacin [Levaquin TAB] 750 mg PO Q24HR #3 tablet 11/06/21 Unknown Rx ED Review of Systems ROS: Stated complaint: AMS Other details as noted in HPI Comment: Unobtainable due to pts medical conditions Physical Exam - Physical Exam Vital Signs: Vital Signs 11/13/21 07:54 Temperature 97.3 F L Pulse Rate 87 Respiratory 18 Rate Blood Pressure 125/60 [Left] O2 Sat by Pulse 99 Oximetry Physical Exam: GENERAL: The patient is well-developed well-nourished female lying on stretcher with decreased responsiveness. Patient has dried dark-colored emesis on the right side of her mouth HEENT: Normocephalic. Left periorbital ecchymosis medially, no hyphema or scleral injection. Extraocular motions are intact. Patient has moist mucous membranes. NECK: Supple. Trachea midline CHEST/LUNGS: Clear to auscultation. There is no respiratory distress noted. HEART/CARDIOVASCULAR: Regular. There is no tachycardia. There is no gallop rub or murmur. ABDOMEN: Abdomen is soft, nontender. Patient has normal bowel sounds. There is no abdominal distention. SKIN: There is no rash. There is no edema. There is no diaphoresis. NEURO: The patient is asleep but awakens to tactile stimuli. Patient does not answer questions. The patient is not cooperative with neurologic exam. MUSCULOSKELETAL: There is no evidence of acute injury. ED Course Vital Signs 11/13/21 07:54 Temperature 97.3 F L Pulse Rate 87 Respiratory 18 Rate Blood Pressure 125/60 [Left] O2 Sat by Pulse 99 Oximetry ED Medical Decision Making - Lab Data Result diagrams: 11/13/21 09:20 11/13/21 09:20 Laboratory Tests 11/13/21 11/13/21 11/13/21 08:02 09:20 09:20 WBC 23.4 H RBC 5.28 H Hgb 15.8 H Hct 47.5 H MCV 90 MCH 30 MCHC 33 RDW 13.9 Plt Count 178 Add Manual Diff Complete Total Counted 100 Seg Neuts % (Manual) 95.0 H Band Neutrophils % 0 Lymphocytes % (Manual) 3.0 L Reactive Lymphs % (Man) 0 Monocytes % (Manual) 2.0 Eosinophils % (Manual) 0 Basophils % (Manual) 0 Metamyelocytes % 0 Myelocytes % 0 Promyelocytes % 0 Blast Cells % 0 Nucleated RBC % Not Reportable Seg Neutrophils # Man 22.2 H Band Neutrophils # 0.0 Lymphocytes # (Manual) 0.7 L Abs React Lymphs (Man) 0.0 Monocytes # (Manual) 0.5 Eosinophils # (Manual) 0.0 Basophils # (Manual) 0.0 Metamyelocytes # 0.0 Myelocytes # 0.0 Promyelocytes # 0.0 Blast Cells # 0.0 WBC Morphology Not Reportable Hypersegmented Neuts Not Reportable Hyposegmented Neuts Not Reportable Hypogranular Neuts Not Reportable Smudge Cells Not Reportable Toxic Granulation Not Reportable Toxic Vacuolation Not Reportable Dohle Bodies Not Reportable Pelger-Huet Anomaly Not Reportable Hima Rods Not Reportable Platelet Estimate Consistent w auto Clumped Platelets Not Reportable Plt Clumps, EDTA Not Reportable Large Platelets Rare Giant Platelets Not Reportable Platelet Satelliting Not Reportable Plt Morphology Comment Not Reportable RBC Morphology Not Reportable Dimorphic RBCs Not Reportable Polychromasia Not Reportable Hypochromasia Not Reportable Poikilocytosis Rare Anisocytosis Not Reportable Microcytosis Not Reportable Macrocytosis Not Reportable Spherocytes Rare Pappenheimer Bodies Not Reportable Sickle Cells Not Reportable Target Cells Not Reportable Tear Drop Cells Not Reportable Ovalocytes Rare Helmet Cells Not Reportable [place] Bodies Not Reportable [place] Rings Not Reportable Wheeler Cells Not Reportable Bite Cells Not Reportable Crenated Cell Not Reportable Elliptocytes Not Reportable Acanthocytes (Spur) Not Reportable Rouleaux Not Reportable Hemoglobin C Crystals Not Reportable Schistocytes Not Reportable Malaria parasites Not Reportable Rocky Bodies Not Reportable Hem Pathologist Commnt No Sodium 139 Potassium 4.5 Chloride 99.5 Carbon Dioxide 19 L Anion Gap 25 BUN 56 H Creatinine 2.1 H Estimated GFR 22 BUN/Creatinine Ratio 27 Glucose 353 H POC Glucose 324 H Calcium 9.2 Total Bilirubin 1.00 AST 11 ALT 12 Alkaline Phosphatase 100 Ammonia Total Creatine Kinase 82 CK-MB (CK-2) 4.0 CK-MB (CK-2) Rel Index 4.8 H Troponin T < 0.010 Total Protein 7.3 Albumin 3.6 L Albumin/Globulin Ratio 1.0 TSH Free T4 Urine Color Urine Turbidity Urine pH Ur Specific [place] Urine Protein Urine Glucose (UA) Urine Ketones Urine Blood Urine Nitrite Urine Bilirubin Urine Urobilinogen Ur Leukocyte Esterase Urine WBC (Auto) Urine RBC (Auto) U Epithel Cells (Auto) Hyaline Casts Urine Mucus Plasma/Serum Alcohol Blood Type 11/13/21 11/13/21 11/13/21 09:20 09:20 09:20 WBC RBC Hgb Hct MCV MCH MCHC RDW Plt Count Add Manual Diff Total Counted Seg Neuts % (Manual) Band Neutrophils % Lymphocytes % (Manual) Reactive Lymphs % (Man) Monocytes % (Manual) Eosinophils % (Manual) Basophils % (Manual) Metamyelocytes % Myelocytes % Promyelocytes % Blast Cells % Nucleated RBC % Seg Neutrophils # Man Band Neutrophils # Lymphocytes # (Manual) Abs React Lymphs (Man) Monocytes # (Manual) Eosinophils # (Manual) Basophils # (Manual) Metamyelocytes # Myelocytes # Promyelocytes # Blast Cells # WBC Morphology Hypersegmented Neuts Hyposegmented Neuts Hypogranular Neuts Smudge Cells Toxic Granulation Toxic Vacuolation Dohle Bodies Pelger-Huet Anomaly Hima Rods Platelet Estimate Clumped Platelets Plt Clumps, EDTA Large Platelets Giant Platelets Platelet Satelliting Plt Morphology Comment RBC Morphology Dimorphic RBCs Polychromasia Hypochromasia Poikilocytosis Anisocytosis Microcytosis Macrocytosis Spherocytes Pappenheimer Bodies Sickle Cells Target Cells Tear Drop Cells Ovalocytes Helmet Cells [place] Bodies Warren[place] Rings Omero Cells Bite Cells Crenated Cell Elliptocytes Acanthocytes (Spur) Rouleaux Hemoglobin C Crystals Schistocytes Malaria parasites Rocky Bodies Hem Pathologist Commnt Sodium Potassium Chloride Carbon Dioxide Anion Gap BUN Creatinine Estimated GFR BUN/Creatinine Ratio Glucose POC Glucose Calcium Total Bilirubin AST ALT Alkaline Phosphatase Ammonia 204.0 H Total Creatine Kinase CK-MB (CK-2) CK-MB (CK-2) Rel Index Troponin T Total Protein Albumin Albumin/Globulin Ratio TSH 1.300 Free T4 1.93 H Urine Color Urine Turbidity Urine pH Ur Specific [place] Urine Protein Urine Glucose (UA) Urine Ketones Urine Blood Urine Nitrite Urine Bilirubin Urine Urobilinogen Ur Leukocyte Esterase Urine WBC (Auto) Urine RBC (Auto) U Epithel Cells (Auto) Hyaline Casts Urine Mucus Plasma/Serum Alcohol < 0.01 Blood Type 11/13/21 11/13/21 11:25 12:23 WBC RBC Hgb Hct MCV MCH MCHC RDW Plt Count Add Manual Diff Total Counted Seg Neuts % (Manual) Band Neutrophils % Lymphocytes % (Manual) Reactive Lymphs % (Man) Monocytes % (Manual) Eosinophils % (Manual) Basophils % (Manual) Metamyelocytes % Myelocytes % Promyelocytes % Blast Cells % Nucleated RBC % Seg Neutrophils # Man Band Neutrophils # Lymphocytes # (Manual) Abs React Lymphs (Man) Monocytes # (Manual) Eosinophils # (Manual) Basophils # (Manual) Metamyelocytes # Myelocytes # Promyelocytes # Blast Cells # WBC Morphology Hypersegmented Neuts Hyposegmented Neuts Hypogranular Neuts Smudge Cells Toxic Granulation Toxic Vacuolation Dohle Bodies Pelger-Huet Anomaly Hima Rods Platelet Estimate Clumped Platelets Plt Clumps, EDTA Large Platelets Giant Platelets Platelet Satelliting Plt Morphology Comment RBC Morphology Dimorphic RBCs Polychromasia Hypochromasia Poikilocytosis Anisocytosis Microcytosis Macrocytosis Spherocytes Pappenheimer Bodies Sickle Cells Target Cells Tear Drop Cells Ovalocytes Helmet Cells [place] Bodies [place] Rings Wheeler Cells Bite Cells Crenated Cell Elliptocytes Acanthocytes (Spur) Rouleaux Hemoglobin C Crystals Schistocytes Malaria parasites [place] Bodies Hem Pathologist Commnt Sodium Potassium Chloride Carbon Dioxide Anion Gap BUN Creatinine Estimated GFR BUN/Creatinine Ratio Glucose POC Glucose Calcium Total Bilirubin AST ALT Alkaline Phosphatase Ammonia Total Creatine Kinase CK-MB (CK-2) CK-MB (CK-2) Rel Index Troponin T Total Protein Albumin Albumin/Globulin Ratio TSH Free T4 Urine Color Yellow Urine Turbidity Slightly-cloudy Urine pH 5.0 Ur Specific [place] 1.020 Urine Protein <15 mg/dl Urine Glucose (UA) 50 Urine Ketones Tr Urine Blood Neg Urine Nitrite Neg Urine Bilirubin Neg Urine Urobilinogen < 2.0 Ur Leukocyte Esterase Neg Urine WBC (Auto) 8.0 H Urine RBC (Auto) 2.0 U Epithel Cells (Auto) 32.0 H Hyaline Casts 130 Urine Mucus 2+ Plasma/Serum Alcohol Blood Type A POSITIVE - EKG Data -: EKG Interpreted by Me EKG shows normal: sinus rhythm Rate: normal (88 bpm) - EKG Data When compared to previous EKG there are: no significant change Interpretation: unchanged when compared t (11/04/2021) - Radiology Data Radiology results: report reviewed (CT head), image reviewed (CT head) interpreted by me: Chest x-ray-right middle lobe infiltrate. No pneumothorax [facility] [address] [place] [address] Cat Scan Report Signed Patient: YANNA MOCTEZUMA MR#: [id number] : 1935 Acct:[id number] Age/Sex: 86 / F ADM Date: 11/13/21 Loc: ED Attending Dr: Ordering Physician: EPIFANIO CASEY MD Date of Service: 11/13/21 Procedure(s): CT head/brain wo con Accession Number(s): [id number] cc: EPIFANIO CASEY MD CT BRAIN: 11/13/2021 INDICATION / CLINICAL INFORMATION: Altered mental status, left jl orbital ecchymosis. COMPARISON: CT brain 11/04/2021. MRI brain 11/05/2021. FINDINGS: BRAIN/INTRACRANIAL STRUCTURES: Unenhanced CT images of the brain were obtained and compared to the recent prior MRI 11/23/[address] 11/04/2021. There is been no change. Again seen are age-related atrophic changes and chronic white matter hypoattenuation. There is no evidence of acute large vessel territory ischemic injury, hemorrhage, or mass. There are no abnormal extra-axial fluid collections. EXTRACRANIAL STRUCTURES: Unremarkable. IMPRESSION: No acute abnormality. Chronic and age-related changes. No significant change when compared to recent exams. All CT scans at this location are performed using dose reduction to ALARA by means of automated exposure control. Signer Name: Abelardo Lora MD Signed: 11/13/2021 9:17 AM Workstation Name: [id number] Transcribed By: AO Dictated By: Abelardo Lora MD Electronically Authenticated By: Abelardo Lora MD Signed Date/Time: 11/13/21916 DD/ 3 TD/TT: - Differential Diagnosis ICH, metabolic encephalopathy, electrolyte imbalance, UTI Critical care attestation.: If time is entered above; I have spent that time in minutes in the direct care of this critically ill patient, excluding procedure time. ED Disposition Clinical Impression: Altered mental status, UTI (urinary tract infection), Pneumonia, Hepatic encephalopathy Disposition: ADMITTED INPATIENT Is pt being admited?: Yes Does the pt Need Aspirin: No Condition: Fair Time of Disposition: 13:20 (Care transferred to hospitalist (Dr. Gupta))
--- NOTE | 2021-11-13 09:22 | Cat Scan Report ---
CT BRAIN: 11/13/2021 INDICATION / CLINICAL INFORMATION: Altered mental status, left periorbital ecchymosis. COMPARISON: CT brain 11/04/2021. MRI brain 11/05/2021. FINDINGS: BRAIN/INTRACRANIAL STRUCTURES: Unenhanced CT images of the brain were obtained and compared to the re cent prior MRI 11/23/[address] 11/04/2021. There is been no change. Again seen are age-related atrophic changes and chronic white matter hypoattenuation. There is no evidence of acute large vessel territory ischemic injury, hemorrhage, or mass. There are no abnormal extra-axial fluid collections. EXTRACRANIAL STRUCTURES: Unremarkable. IMPRESSION: No acute abnormality. Chronic and age-related changes. No significant change when compared to recent exams. All CT scans at this location are performed using dose reduction to ALARA by means of automated expos ure control. Signer Name: Abelardo Lora MD Signed: 11/13/2021 9:17 AM Workstation Name: [id number]
[2021-11-13 10:19] LABS: Hematocrit 47.5 % (30.3-42.9); Hemoglobin 15.8 gm/dl (10.1-14.3); Mean Corpuscular HGB Conc 33 % (30-34); Mean Corpuscular Volume 90 fl (79-97); Platelet Count 178 K/mm3 (140-440); Red Blood Count 5.28 M/mm3 (3.65-5.03); Red Cell Distribution Width 13.9 % (13.2-15.2)
[2021-11-13 10:22] LABS: Alanine Aminotransferase 12 units/L (7-56); Albumin 3.6 g/dL (3.9-5); BUN/Creatinine Ratio 27; Blood Urea Nitrogen 56 mg/dL (7-17); Calcium 9.2 mg/dL (8.4-10.2); Hemolysis Index 6
[2021-11-13 10:23] LABS: Free T4 (Free Thyroxine) 1.93 ng/dL (0.76-1.46)
[2021-11-13 11:24] LABS: Total Cells Counted 100
[2021-11-13 11:25] LABS: Basophils % (Manual) 0 % (0.0-1.8); Eosinophils % (Manual) 0 % (0.0-4.3)
[2021-11-13 11:29] LABS: Large Platelets Rare; Ovalocytes Rare; Platelet Estimate Consistent w Auto; Poikilocytosis Rare; Spherocytes Rare
--- NOTE | 2021-11-13 11:42 | XRay Report ---
CHEST 1 VIEW 11/13/2021 11:19 AM INDICATION / CLINICAL INFORMATION: Leukocytosis, altered mental status. COMPARISON: 11/04/2021 FINDINGS: SUPPORT DEVICES: None. HEART / MEDIASTINUM: No significant abnormality. LUNGS / PLEURA: Subtle bibasilar opacities are identified which appear to be new since the previous e xam. This could represent early infiltrates. There is no dense consolidation, pleural effusion or pne umothorax. ADDITIONAL FINDINGS: No significant additional findings. IMPRESSION: 1. Possible early bibasilar infiltrates. Signer Name: Ernst Carter Jr, MD Signed: 11/13/2021 11:37 AM Workstation Name: [id number]
[2021-11-13] MEDS ORDERED: HYDROmorphone 0.5 MG/0.5 ML INJ IV PRN ×2 (12:07)
[2021-11-13] MEDS ORDERED: ALBUTEROL 2.5 MG/3 ML NEBU IH PRN (12:07)
[2021-11-13] MEDS ORDERED: LORazepam 2 MG/ML VIAL IV PRN (12:07)
[2021-11-13] MEDS ORDERED: SODIUM CHLORIDE 0.9% 1000 ML IV SOLN IV ONE (12:07)
[2021-11-13] MEDS ORDERED: ONDANSETRON 4 MG/2 ML INJ IV PRN (12:07)
[2021-11-13] MEDS ORDERED: oxyCODONE /ACETAMINOPHEN 5-325MG TAB PO PRN (12:07)
[2021-11-13] MEDS ORDERED: ACETAMINOPHEN 325 MG TAB PO PRN ×2 (12:07)
[2021-11-13 13:11] LABS: Bilirubin,Urine NEG (Negative); Blood,Urine NEG (Negative); Color,Urine Yellow (Yellow); Hyaline Casts,Urine 130 /LPF; Mucus,Urine 2+ /HPF; Protein,Urine <15 mg/dL mg/dL (Negative); Urobilinogen,Urine < 2.0 mg/dL (<2.0)
--- NOTE | 2021-11-13 13:30 | History and Physical Report ---
History of Present Illness Date of admission: 11/13/21 12:07 Chief complaint: Unresponsive History of present illness: 86 YO Female Assisted Living Facility Resident with Alzheimers Dementia, DM, HTN presents ED for evaluation. Patient is lethargic with diminished cognition at time of my evaluation and is unable to provide history. Patient history taken from EMS staff, ED staff, as well as the patient's daughter who was made available by telephone for interview. As per daughter she was noted by assisted living facility staff and informed that the patient has experienced a recent fal l as well as increased confusion, generalized weakness and decreased responsiveness. Patient is currently bedbound, nonambulatory and has a palliative performance score 30% and requires 6/6 assistance with activities of daily living. Patient is unable to recognize family members at this time. Velvet kolb has a fast score of 7D. EMS was notified and upon arrival the patient was found to be in distress and subsequently transported to [facility] for further care and evaluation of the aforementioned symptoms. The patient was seen and evaluated in the emergency department. All lab imaging studies reviewed. Patient found to have urinary tract infection complicated by sepsis, acute kidney injury, toxic metabolic encephalopathy. The patient was admitted to medical floor and initiated on sepsis protocol due to increased risk of worsening status symptoms and for medical stabilization. Patient is confused and lethargic at time of evaluation but has a positive gag reflex and is able to protect her airway without difficulty. Prior admission on 11/05/2021 reviewed. All medication listed at time of admission has been reconciled. Advanced care planning conducted in ED. Past History Past Medical History: diabetes, hypertension, other (See HPI) Past Surgical History: No surgical history, Other (Reviewed) Social history: . denies: smoking, alcohol abuse, prescription drug abuse Family history: hypertension Medications and Allergies Allergies Allergy/AdvReac Type Severity Reaction Status Date / Time No Known Allergies Allergy Verified 11/13/21 14:09 Home Medications Medication Instructions Recorded Confirmed Last Taken Type levoFLOXacin [Levaquin TAB] 750 mg PO Q24HR #3 tablet 11/06/21 Unknown Rx Active Meds: Active Medications Acetaminophen (Acetaminophen 325 Mg Tab) 650 mg PO Q4H PRN PRN Reason: Pain MILD(1-3)/Fever >100.5/GARRIDO Acetaminophen (Acetaminophen 325 Mg Tab) 650 mg PO Q6H PRN PRN Reason: Pain, Mild (1-3) Albuterol (Albuterol 2.5 Mg/3 Ml Nebu) 2.5 mg IH Q4HRT PRN PRN Reason: Shortness Of Breath Hydromorphone HCl (Hydromorphone 0.5 Mg/0.5 Ml Inj) 0.25 mg IV Q4H PRN PRN Reason: Pain, Moderate (4-6) Hydromorphone HCl (Hydromorphone 0.5 Mg/0.5 Ml Inj) 0.5 mg IV Q13H PRN PRN Reason: Pain , Severe (7-10) Levofloxacin/Dextrose (Levaquin 750mg/150ml) 750 mg in 150 mls @ 100 mls/hr IV Q24H MANUEL; Protocol Last Admin: 11/13/21 12:42 Dose: 100 mls/hr Lorazepam (Lorazepam 2 Mg/Ml Vial) 1 mg IV Q4H PRN PRN Reason: Agitation Ondansetron HCl (Ondansetron 4 Mg/2 Ml Inj) 4 mg IV Q8H PRN PRN Reason: Nausea And Vomiting Oxycodone/Acetaminophen (Oxycodone /Acetaminophen 5-325mg Tab) 1 tab PO Q16H PRN PRN Reason: Pain, Moderate (4-6) Sodium Chloride (Sodium Chloride 0.9% 10 Ml Flush Syringe) 10 ml IV BID MANUEL Sodium Chloride (Sodium Chloride 0.9% 10 Ml Flush Syringe) 10 ml IV PRN PRN PRN Reason: LINE FLUSH Review of Systems ROS unobtainable: due to mental status Exam - Constitutional Vitals: Temp Pulse Resp BP Pulse Ox 97.3 F L 82 23 122/59 98 11/13/21 07:54 11/13/21 12:15 11/13/21 12:15 11/13/21 12:15 11/13/21 12:15 General appearance: Present: mild distress - EENT Eyes: Present: PERRL ENT: hearing intact, clear oral mucosa, hearing decreased - Neck Neck: Present: supple, normal ROM - Respiratory Respiratory effort: labored Respiratory: bilateral: diminished - Cardiovascular Rhythm: other (Tachycardia) - Extremities Extremities: pulses symmetrical, No edema Peripheral Pulses: abnormal (Capillary refill greater than 3.5 seconds) - Abdominal General gastrointestinal: Present: soft, non-tender, non-distended, normal bowel sounds Female genitourinary: Present: normal - Integumentary Integumentary: Present: clear, dry, clammy, decreased turgor - Musculoskeletal Musculoskeletal: generalized weakness - Psychiatric Psychiatric: no appropriate mood/affect, no intact judgment & insight, no memory intact - Neurologic Neurologic: no CNII-XII intact, no focal deficits, moves all extremities, no gait normal HEART Score - HEART Score Troponin: Troponin T < 0.010 ng/mL (0.00-0.029) 11/13/21 09:20 Results - Labs CBC & Chem 7: 11/13/21 09:20 11/13/21 09:20 Labs: Abnormal lab results 11/13/21 11/13/21 11/13/21 Range/Units 08:02 09:20 09:20 WBC 23.4 H (4.5-11.0) K/mm3 RBC 5.28 H (3.65-5.03) M/mm3 Hgb 15.8 H (10.1-14.3) gm/dl Hct 47.5 H (30.3-42.9) % Seg Neuts % (Manual) 95.0 H (40.0-70.0) % Lymphocytes % (Manual) 3.0 L (13.4-35.0) % Seg Neutrophils # Man 22.2 H (1.8-7.7) K/mm3 Lymphocytes # (Manual) 0.7 L (1.2-5.4) K/mm3 Carbon Dioxide 19 L (22-30) mmol/L BUN 56 H (7-17) mg/dL Creatinine 2.1 H (0.6-1.2) mg/dL Glucose 353 H (65-100) mg/dL POC Glucose 324 H (70-105) mg/dL Ammonia (25-60) umol/L CK-MB (CK-2) Rel Index 4.8 H (0-4) Albumin 3.6 L (3.9-5) g/dL Free T4 (0.76-1.46) ng/dL Urine WBC (Auto) (0.0-6.0) /HPF U Epithel Cells (Auto) (0-13.0) /HPF 11/13/21 11/13/21 11/13/21 Range/Units 09:20 09:20 11:25 WBC (4.5-11.0) K/mm3 RBC (3.65-5.03) M/mm3 Hgb (10.1-14.3) gm/dl Hct (30.3-42.9) % Seg Neuts % (Manual) (40.0-70.0) % Lymphocytes % (Manual) (13.4-35.0) % Seg Neutrophils # Man (1.8-7.7) K/mm3 Lymphocytes # (Manual) (1.2-5.4) K/mm3 Carbon Dioxide (22-30) mmol/L BUN (7-17) mg/dL Creatinine (0.6-1.2) mg/dL Glucose (65-100) mg/dL POC Glucose (70-105) mg/dL Ammonia 204.0 H (25-60) umol/L CK-MB (CK-2) Rel Index (0-4) Albumin (3.9-5) g/dL Free T4 1.93 H (0.76-1.46) ng/dL Urine WBC (Auto) 8.0 H (0.0-6.0) /HPF U Epithel Cells (Auto) 32.0 H (0-13.0) /HPF Assessment and Plan - Patient Problems (1) Sepsis Current Visit: Yes Status: Acute Qualifiers: Acute renal failure type: with acute tubular necrosis Plan to address problem: Sepsis protocol: IV fluid resuscitation therapy, IV antibiotic therapy, supplemental oxygen, maintain mean arterial pressure greater than equal 65, serial lactic acid level, blood culture, monitor fluid balance. (2) UTI (urinary tract infection) Current Visit: Yes Status: Acute Qualifiers: Encounter type: initial encounter Plan to address problem: CBC, CMP, urinalysis, IV antibiotic therapy. (3) Alzheimer's dementia Current Visit: Yes Status: Acute Qualifiers: Dementia behavioral disturbance: without behavioral disturbance Plan to address problem: Supportive care, (4) Metabolic encephalopathy Current Visit: Yes Status: Acute Plan to address problem: CTA, neuro check, seizure precaution, aspiration precautions. (5) Acute kidney injury (SKIP) with acute tubular necrosis (ATN) Current Visit: Yes Status: Acute Plan to address problem: IV fluid resuscitation therapy, BMP, repeat BMP in a.m. to monitor serum creatinine as well as GFR. (6) Debility Current Visit: Yes Status: Acute Plan to address problem: Bed alarm, fall precautions. (7) DVT prophylaxis Current Visit: Yes Status: Acute Plan to address problem: SCD to bilateral lower extremities while in bed (8) Advance care planning Current Visit: Yes Status: Acute Plan to address problem: Disease education conducted, care plan discussed, diagnoses discussed, prognosis discussed. Patient daughter Angelina Joy was notified., [phone] patient daughter informed of poor prognosis. Patient daughter elects to make patient DNR. Patient daughter request hospice evaluation and outpatient hospice care at time of discharge. [facility]' hospice notified as per family request. +30 minutes. (9) Preventative health care Current Visit: Yes Status: Acute Plan to address problem: Patient daughter counseled regarding risk reduction, supportive care, pain control. +30 minutes.
--- NOTE | 2021-11-13 13:35 | Electrocardiograph Report ---
[facility] Test Date: 2021-11-13 Test Time: 08:21:22 Pat Name: YANNA MOCTEZUMA Department: Room: [facility] Gender: F [employer] Operator: CLAIRE : 1935 Requested By: EPIFANIO CASEY Order Number: [id number] Reading MD: Thai Pearl Measurements Intervals Blain Rate: 88 P: 48 SC: 154 QRS: -9 QRSD: 86 T: 45 QT: 394 QTc: 478 Interpretive Statements Sinus rhythm Probable left atrial enlargement Low voltage, precordial leads Compared to ECG 11/04/2021 22:19:28 No significant change Electronically Signed On 11-13-2021 13:35:05 EDT by Thai Pearl
[2021-11-13] MEDS ORDERED: INSULIN LISPRO 100 UNIT/ML SUB-Q ONE (23:15)
[2021-11-14] MEDS: SODIUM CHLORIDE 0.9% 1000 ML 1,000 ML IV SCH ×2 (05:39→22:53)
[2021-11-14 06:46] LABS: Hematocrit 43.1 % (30.3-42.9); Hemoglobin 14.8 gm/dl (10.1-14.3); Mean Corpuscular HGB Conc 34 % (30-34); Mean Corpuscular Volume 89 fl (79-97); Platelet Count 157 K/mm3 (140-440); Red Blood Count 4.84 M/mm3 (3.65-5.03); Red Cell Distribution Width 13.9 % (13.2-15.2)
[2021-11-14 07:11] LABS: Calcium 8.4 mg/dL (8.4-10.2)
[2021-11-14] MEDS ORDERED: DEXTROSE 50% IN WATER (25GM) 50 ML SYRINGE IV PRN (08:58)
[2021-11-14 09:54] LABS: Basophils % (Manual) 0 % (0.0-1.8); Eosinophils % (Manual) 0 % (0.0-4.3); Large Platelets Few; Platelet Estimate Consistent w Auto; Total Cells Counted 100
[2021-11-14] MEDS ORDERED: VANCOMYCIN PHARMACY TO DOSE IV SCH (10:00)
[2021-11-14] MEDS ORDERED: VANCOMYCIN/NS 1 GM/250 ML 1 GM/250 ML BAG IV ONE (12:00)
--- NOTE | 2021-11-14 12:25 | Progress Note ---
Assessment and Plan Assessment and plan: #Sepsis -Sepsis protocol: IV fluid resuscitation therapy, IV antibiotic therapy, ackerman pplemental oxygen, maintain mean arterial pressure greater than equal 65, serial lactic acid level, blood culture, monitor fluid balance -vancomycin started, will continue rocephin #UTI (urinary tract infection) -CBC, CMP, urinalysis, IV antibiotic therapy. #Acute metabolic encephalopathy #Alzheimer's dementia -CT of the head negative for acute findings -will treat underlying infection; could be due to worsening dementia -will continue to monitor #Acute kidney injury secondary to vasomotor nephropathy -SCr 2.1 -> 2.3 -continue IV fluid resuscitation therapy, BMP, repeat BMP in a.m. to monitor serum creatinine as well as GFR -Avoid nephrotoxins and renally dose medications -If creatinine continues to rise, will consult nephrology #Anion gap metabolic acidosis #Lactic acidosis -Likely secondary to underlying infection and SKIP #[id number] type 2 diabetes, with hyperglycemia -A1c ordered -We will start sliding scale insulin. #Debility -chronic -continue with bed alarm, fall precautions. History Interval history: No acute events overnight. Patient groans to manipulation. Spontaneously raul athes. Not seem to be distress at this time. Hospitalist Physical - Physical exam Narrative exam: GENERAL: Well-developed well-nourished. In no acute distress. HEENT: Nasal cannula in place at 2 L/min. Left eyelid with ecchymosis. Mouth with to what appears to be old dried blood NECK: Supple. CHEST/LUNGS: CTAB on room air HEART/CARDIOVASCULAR: RRR. No murmur, rubs or gallops appreciated. ABDOMEN: +BS. NT/ND. SKIN: Bilateral upper extremity ecchymoses. NEURO: Unable to assess. MUSCULOSKELETAL: No joint effusion EXTREMITIES: No cyanosis, clubbing or edema. PSYCH: Unable to assess due to altered mental status. - Constitutional Vitals: Temp Pulse Resp BP Pulse Ox 98.0 F 82 20 115/63 98 11/14/21 04:14 11/13/21 15:11 11/14/21 04:14 11/14/21 04:14 11/14/21 08:37 General appearance: Present: mild distress HEART Score - HEART Score Troponin: Troponin T < 0.010 ng/mL (0.00-0.029) 11/13/21 09:20 Results - Labs CBC & Chem 7: 11/15/21 05:22 11/15/21 05:22 Labs: Laboratory Last Values WBC 20.5 K/mm3 (4.5-11.0) H 11/14/21 05:53 RBC 4.84 M/mm3 (3.65-5.03) 11/14/21 05:53 Hgb 14.8 gm/dl (10.1-14.3) H 11/14/21 05:53 Hct 43.1 % (30.3-42.9) H 11/14/21 05:53 MCV 89 fl (79-97) 11/14/21 05:53 MCH 31 pg (28-32) 11/14/21 05:53 MCHC 34 % (30-34) 11/14/21 05:53 RDW 13.9 % (13.2-15.2) 11/14/21 05:53 Plt Count 157 K/mm3 (140-440) 11/14/21 05:53 Add Manual Diff Complete 11/14/21 05:53 Total Counted 100 11/14/21 05:53 Seg Neutrophils % Distributor Operator 11/14/21 05:53 Seg Neuts % (Manual) 92.0 % (40.0-70.0) H 11/14/21 05:53 Band Neutrophils % 0 % 11/14/21 05:53 Lymphocytes % (Manual) 2.0 % (13.4-35.0) L 11/14/21 05:53 Reactive Lymphs % (Man) 0 % 11/14/21 05:53 Monocytes % (Manual) 6.0 % (0.0-7.3) 11/14/21 05:53 Eosinophils % (Manual) 0 % (0.0-4.3) 11/14/21 05:53 Basophils % (Manual) 0 % (0.0-1.8) 11/14/21 05:53 Metamyelocytes % 0 % 11/14/21 05:53 Myelocytes % 0 % 11/14/21 05:53 Promyelocytes % 0 % 11/14/21 05:53 Blast Cells % 0 % 11/14/21 05:53 Nucleated RBC % Not Reportable 11/14/21 05:53 Seg Neutrophils # Man 18.9 K/mm3 (1.8-7.7) H 11/14/21 05:53 Band Neutrophils # 0.0 K/mm3 11/14/21 05:53 Lymphocytes # (Manual) 0.4 K/mm3 (1.2-5.4) L 11/14/21 05:53 Abs React Lymphs (Man) 0.0 K/mm3 11/14/21 05:53 Monocytes # (Manual) 1.2 K/mm3 (0.0-0.8) H 11/14/21 05:53 Eosinophils # (Manual) 0.0 K/mm3 (0.0-0.4) 11/14/21 05:53 Basophils # (Manual) 0.0 K/mm3 (0.0-0.1) 11/14/21 05:53 Metamyelocytes # 0.0 K/mm3 11/14/21 05:53 Myelocytes # 0.0 K/mm3 11/14/21 05:53 Promyelocytes # 0.0 K/mm3 11/14/21 05:53 Blast Cells # 0.0 K/mm3 11/14/21 05:53 WBC Morphology Not Reportable 11/14/21 05:53 Hypersegmented Neuts Not Reportable 11/14/21 05:53 Hyposegmented Neuts Not Reportable 11/14/21 05:53 Hypogranular Neuts Not Reportable 11/14/21 05:53 Smudge Cells Not Reportable 11/14/21 05:53 Toxic Granulation Not Reportable 11/14/21 05:53 Toxic Vacuolation Not Reportable 11/14/21 05:53 Dohle Bodies Not Reportable 11/14/21 05:53 Pelger-Huet Anomaly Not Reportable 11/14/21 05:53 Hima Rods Not Reportable 11/14/21 05:53 Platelet Estimate Consistent w auto 11/14/21 05:53 Clumped Platelets Not Reportable 11/14/21 05:53 Plt Clumps, EDTA Not Reportable 11/14/21 05:53 Large Platelets Few 11/14/21 05:53 Giant Platelets Not Reportable 11/14/21 05:53 Platelet Satelliting Not Reportable 11/14/21 05:53 Plt Morphology Comment Not Reportable 11/14/21 05:53 RBC Morphology Not Reportable 11/14/21 05:53 Dimorphic RBCs Not Reportable 11/14/21 05:53 Polychromasia Not Reportable 11/14/21 05:53 Hypochromasia Not Reportable 11/14/21 05:53 Poikilocytosis Not Reportable 11/14/21 05:53 Anisocytosis Not Reportable 11/14/21 05:53 Microcytosis Not Reportable 11/14/21 05:53 Macrocytosis Not Reportable 11/14/21 05:53 Spherocytes Not Reportable 11/14/21 05:53 Pappenheimer Bodies Not Reportable 11/14/21 05:53 Sickle Cells Not Reportable 11/14/21 05:53 Target Cells Not Reportable 11/14/21 05:53 Tear Drop Cells Not Reportable 11/14/21 05:53 Ovalocytes Not Reportable 11/14/21 05:53 Helmet Cells Not Reportable 11/14/21 05:53 [place] Bodies Not Reportable 11/14/21 05:53 [place] Rings Not Reportable 11/14/21 05:53 [place] Cells Not Reportable 11/14/21 05:53 Bite Cells Not Reportable 11/14/21 05:53 Crenated Cell Not Reportable 11/14/21 05:53 Elliptocytes Not Reportable 11/14/21 05:53 Acanthocytes (Spur) 1+ 11/14/21 05:53 Rouleaux Not Reportable 11/14/21 05:53 Hemoglobin C Crystals Not Reportable 11/14/21 05:53 Schistocytes Not Reportable 11/14/21 05:53 Malaria parasites Not Reportable 11/14/21 05:53 Rocky Bodies Not Reportable 11/14/21 05:53 Hem Pathologist Commnt No 11/14/21 05:53 Sodium 143 mmol/L (137-145) 11/14/21 05:53 Potassium 4.3 mmol/L (3.6-5.0) 11/14/21 05:53 Chloride 103.2 mmol/L (98-107) 11/14/21 05:53 Carbon Dioxide 19 mmol/L (22-30) L 11/14/21 05:53 Anion Gap 25 mmol/L 11/14/21 05:53 BUN 63 mg/dL (7-17) H 11/14/21 05:53 Creatinine 2.3 mg/dL (0.6-1.2) H 11/14/21 05:53 Estimated GFR 20 ml/min 11/14/21 05:53 BUN/Creatinine Ratio 27 % 11/14/21 05:53 Glucose 288 mg/dL (65-100) H 11/14/21 05:53 POC Glucose 297 mg/dL (70-105) H 11/14/21 11:54 Lactic Acid 4.00 mmol/L (0.7-2.0) H* 11/14/21 08:15 Calcium 8.4 mg/dL (8.4-10.2) 11/14/21 05:53 Total Bilirubin 1.00 mg/dL (0.1-1.2) 11/13/21 09:20 AST 11 units/L (5-40) 11/13/21 09:20 ALT 12 units/L (7-56) 11/13/21 09:20 Alkaline Phosphatase 100 units/L (35-129) 11/13/21 09:20 Ammonia 204.0 umol/L (25-60) H 11/13/21 09:20 Total Creatine Kinase 82 units/L (30-135) 11/13/21 09:20 CK-MB (CK-2) 4.0 ng/mL (0.0-4.0) 11/13/21 09:20 CK-MB (CK-2) Rel Index 4.8 (0-4) H 11/13/21 09:20 Troponin T < 0.010 ng/mL (0.00-0.029) 11/13/21 09:20 Total Protein 7.3 g/dL (6.3-8.2) 11/13/21 09:20 Albumin 3.6 g/dL (3.9-5) L 11/13/21 09:20 Albumin/Globulin Ratio 1.0 % 11/13/21 09:20 TSH 1.300 mlU/mL (0.270-4.200) 11/13/21 09:20 Free T4 1.93 ng/dL (0.76-1.46) H 11/13/21 09:20 Urine Color Yellow (Yellow) 11/13/21 11:25 Urine Turbidity Slightly-cloudy (Clear) 11/13/21 11:25 Urine pH 5.0 (5.0-7.0) 11/13/21 11:25 Ur Specific [place] 1.020 (1.003-1.030) 11/13/21 11:25 Urine Protein <15 mg/dl mg/dL (Negative) 11/13/21 11:25 Urine Glucose (UA) 50 mg/dL (Negative) 11/13/21 11:25 Urine Ketones Tr mg/dL (Negative) 11/13/21 11:25 Urine Blood Neg (Negative) 11/13/21 11:25 Urine Nitrite Neg (Negative) 11/13/21 11:25 Urine Bilirubin Neg (Negative) 11/13/21 11:25 Urine Urobilinogen < 2.0 mg/dL (<2.0) 11/13/21 11:25 Ur Leukocyte Esterase Neg (Negative) 11/13/21 11:25 Urine WBC (Auto) 8.0 /HPF (0.0-6.0) H 11/13/21 11:25 Urine RBC (Auto) 2.0 /HPF (0.0-6.0) 11/13/21 11:25 U Epithel Cells (Auto) 32.0 /HPF (0-13.0) H 11/13/21 11:25 Hyaline Casts 130 /LPF 11/13/21 11:25 Urine Mucus 2+ /HPF 11/13/21 11:25 Plasma/Serum Alcohol < 0.01 % (0-0.07) 11/13/21 09:20 Blood Type A POSITIVE 11/13/21 12:23 Antibody Screen Negative 11/13/21 12:23 Microbiology: Microbiology 11/13/21 12:23 Peripheral/Venous Blood Culture - Preliminary Culture in Progress 11/13/21 12:23 Peripheral/Venous Blood Culture - Preliminary Culture in Progress Stoner/IV: Voiding Method External Female Catheter Active Medications - Current Medications Current Medications: Generic Name Dose Route Start Last Admin Trade Name Freq PRN Reason Stop Dose Admin Acetaminophen 650 mg 11/13/21 12:07 Acetaminophen 325 Mg Tab PO Q4H PRN Pain MILD(1-3)/Fever >100.5/GARRIDO Acetaminophen 650 mg 11/13/21 12:07 Acetaminophen 325 Mg Tab PO Q6H PRN Pain, Mild (1-3) Albuterol 2.5 mg 11/13/21 12:07 Albuterol 2.5 Mg/3 Ml Nebu IH Q4HRT PRN Shortness Of Breath Dextrose 50 ml 11/14/21 08:58 Dextrose 50% In Water (25gm) 50 Ml Syringe IV Q30MIN PRN Hypoglycemia Protocol Hydromorphone HCl 0.25 mg 11/13/21 12:07 Hydromorphone 0.5 Mg/0.5 Ml Inj IV Q4H PRN Pain, Moderate (4-6) Hydromorphone HCl 0.5 mg 11/13/21 12:07 Hydromorphone 0.5 Mg/0.5 Ml Inj IV Q13H PRN Pain , Severe (7-10) Levofloxacin/Dextrose 750 mg in 150 mls @ 100 mls/hr 11/13/21 13:00 11/13/21 12:42 Levaquin 750mg/150ml IV 100 mls/hr Q24H MANUEL Administration Protocol Sodium Chloride 1,000 mls @ 75 mls/hr 11/13/21 22:30 11/14/21 05:39 Nacl 0.9% 1000 Ml IV 75 mls/hr DIRECT MANUEL Administration Vancomycin HCl 1 gm in 250 mls @ 167.007 mls/hr 11/14/21 12:00 Vancomycin/Ns 1 Gm/250 Ml IV 11/14/21 13:29 ONCE ONE Insulin Human Lispro 0 unit 11/14/21 12:00 Insulin Lispro 100 Unit/Ml SUB-Q Q6HR MANUEL Protocol Lorazepam 1 mg 11/13/21 12:07 Lorazepam 2 Mg/Ml Vial IV Q4H PRN Agitation Ondansetron HCl 4 mg 11/13/21 12:07 Ondansetron 4 Mg/2 Ml Inj IV Q8H PRN Nausea And Vomiting Oxycodone/Acetaminophen 1 tab 11/13/21 12:07 Oxycodone /Acetaminophen 5-325mg Tab PO Q16H PRN Pain, Moderate (4-6) Sodium Chloride 10 ml 11/13/21 22:00 11/13/21 21:18 Sodium Chloride 0.9% 10 Ml Flush Syringe IV 10 ml BID MANUEL Administration Sodium Chloride 10 ml 11/13/21 12:07 Sodium Chloride 0.9% 10 Ml Flush Syringe IV PRN PRN LINE FLUSH
[2021-11-14] MEDS: INSULIN LISPRO 100 UNIT/ML SUB-Q SCH ×2 (12:50→18:07)
[2021-11-15] MEDS: INSULIN LISPRO 100 UNIT/ML SUB-Q SCH ×4 (00:23→17:42)
[2021-11-15 05:59] LABS: Hemoglobin 14.3 gm/dl (10.1-14.3); Mean Corpuscular HGB Conc 33 % (30-34); Mean Corpuscular Volume 91 fl (79-97); Platelet Count 145 K/mm3 (140-440); Red Blood Count 4.85 M/mm3 (3.65-5.03); Red Cell Distribution Width 14.3 % (13.2-15.2)
[2021-11-15 06:10] LABS: Calcium 7.9 mg/dL (8.4-10.2)
[2021-11-15] MEDS: INSULIN GLARGINE 100 UNITS/ML SUB-Q SCH (08:00)
[2021-11-15] MEDS: SODIUM CHLORIDE 0.9% 1000 ML 1,000 ML IV SCH ×2 (09:58→21:14)
--- NOTE | 2021-11-15 12:23 | Progress Note ---
Assessment and Plan Assessment and plan: #Sepsis -Sepsis protocol: IV fluid resuscitation therapy, IV antibiotic therapy, ackerman pplemental oxygen, maintain mean arterial pressure greater than equal 65, serial lactic acid level, blood culture, monitor fluid balance -continue vancomycin and rocephin -BCx NGTD x 24hrs #UTI (urinary tract infection) -CBC, CMP, urinalysis, IV antibiotic therapy. #Acute metabolic encephalopathy #Alzheimer's dementia -CT of the head negative for acute findings -will treat underlying infection; could be due to worsening dementia -will continue to monitor #Acute kidney injury secondary to vasomotor nephropathy -SCr 2.1 -> 2.3 -> 2.9 -continue IV fluid resuscitation therapy, BMP, repeat BMP in a.m. to monitor serum creatinine as well as GFR -Avoid nephrotoxins and renally dose medications -If creatinine continues to rise, will consult nephrology #Anion gap metabolic acidosis #Lactic acidosis -Likely secondary to underlying infection and SKIP #[id number] type 2 diabetes, with hyperglycemia -continue SSI #Debility -chronic -continue with bed alarm, fall precautions #Advanced care planning -Disease education conducted, care plan discussed, diagnoses discussed, prognosis discussed. Discussed poor prognosis with Daughter Angelina Joy was notified [phone]. She wants to continue with DNR/DNI status. She will prefer not to continue with aggressive care and consultation of appropriate physicians. We will continue with current care plan and discharge patient tomorrow with hospice. [facility] notified as per family request. +30 minutes. History Interval history: No acute events overnight. Patient groans to manipulation. Spontaneously breathes. She appears to be comfortable and not in distress at this time. Hospitalist Physical - Physical exam Narrative exam: GENERAL: Well-developed well-nourished. In no acute distress. HEENT: Nasal cannula in place at 2 L/min. Left eyelid with ecchymosis. Mouth with to what appears to be old dried blood NECK: Supple. CHEST/LUNGS: CTAB on room air HEART/CARDIOVASCULAR: RRR. No murmur, rubs or gallops appreciated. ABDOMEN: +BS. NT/ND. SKIN: Bilateral upper extremity ecchymoses. NEURO: Unable to assess. MUSCULOSKELETAL: No joint effusion EXTREMITIES: No cyanosis, clubbing or edema. PSYCH: Unable to assess due to altered mental status. - Constitutional Vitals: Temp Pulse Resp BP Pulse Ox 97.4 F L 99 H 22 112/52 100 11/15/21 04:41 11/15/21 04:41 11/15/21 04:41 11/15/21 04:41 11/15/21 09:11 General appearance: Present: mild distress HEART Score - HEART Score Troponin: Troponin T < 0.010 ng/mL (0.00-0.029) 11/13/21 09:20 Results - Labs CBC & Chem 7: 11/15/21 05:22 11/15/21 05:22 Labs: Laboratory Last Values WBC 22.6 K/mm3 (4.5-11.0) H 11/15/21 05:22 RBC 4.85 M/mm3 (3.65-5.03) 11/15/21 05:22 Hgb 14.3 gm/dl (10.1-14.3) 11/15/21 05:22 Hct 44.0 % (30.3-42.9) H 11/15/21 05:22 MCV 91 fl (79-97) 11/15/21 05:22 MCH 30 pg (28-32) 11/15/21 05:22 MCHC 33 % (30-34) 11/15/21 05:22 RDW 14.3 % (13.2-15.2) 11/15/21 05:22 Plt Count 145 K/mm3 (140-440) 11/15/21 05:22 Add Manual Diff Complete 11/14/21 05:53 Total Counted 100 11/14/21 05:53 Seg Neutrophils % Deburrer Machine 11/14/21 05:53 Seg Neuts % (Manual) 92.0 % (40.0-70.0) H 11/14/21 05:53 Band Neutrophils % 0 % 11/14/21 05:53 Lymphocytes % (Manual) 2.0 % (13.4-35.0) L 11/14/21 05:53 Reactive Lymphs % (Man) 0 % 11/14/21 05:53 Monocytes % (Manual) 6.0 % (0.0-7.3) 11/14/21 05:53 Eosinophils % (Manual) 0 % (0.0-4.3) 11/14/21 05:53 Basophils % (Manual) 0 % (0.0-1.8) 11/14/21 05:53 Metamyelocytes % 0 % 11/14/21 05:53 Myelocytes % 0 % 11/14/21 05:53 Promyelocytes % 0 % 11/14/21 05:53 Blast Cells % 0 % 11/14/21 05:53 Nucleated RBC % Not Reportable 11/14/21 05:53 Seg Neutrophils # Man 18.9 K/mm3 (1.8-7.7) H 11/14/21 05:53 Band Neutrophils # 0.0 K/mm3 11/14/21 05:53 Lymphocytes # (Manual) 0.4 K/mm3 (1.2-5.4) L 11/14/21 05:53 Abs React Lymphs (Man) 0.0 K/mm3 11/14/21 05:53 Monocytes # (Manual) 1.2 K/mm3 (0.0-0.8) H 11/14/21 05:53 Eosinophils # (Manual) 0.0 K/mm3 (0.0-0.4) 11/14/21 05:53 Basophils # (Manual) 0.0 K/mm3 (0.0-0.1) 11/14/21 05:53 Metamyelocytes # 0.0 K/mm3 11/14/21 05:53 Myelocytes # 0.0 K/mm3 11/14/21 05:53 Promyelocytes # 0.0 K/mm3 11/14/21 05:53 Blast Cells # 0.0 K/mm3 11/14/21 05:53 WBC Morphology Not Reportable 11/14/21 05:53 Hypersegmented Neuts Not Reportable 11/14/21 05:53 Hyposegmented Neuts Not Reportable 11/14/21 05:53 Hypogranular Neuts Not Reportable 11/14/21 05:53 Smudge Cells Not Reportable 11/14/21 05:53 Toxic Granulation Not Reportable 11/14/21 05:53 Toxic Vacuolation Not Reportable 11/14/21 05:53 Dohle Bodies Not Reportable 11/14/21 05:53 Pelger-Huet Anomaly Not Reportable 11/14/21 05:53 Hima Rods Not Reportable 11/14/21 05:53 Platelet Estimate Consistent w auto 11/14/21 05:53 Clumped Platelets Not Reportable 11/14/21 05:53 Plt Clumps, EDTA Not Reportable 11/14/21 05:53 Large Platelets Few 11/14/21 05:53 Giant Platelets Not Reportable 11/14/21 05:53 Platelet Satelliting Not Reportable 11/14/21 05:53 Plt Morphology Comment Not Reportable 11/14/21 05:53 RBC Morphology Not Reportable 11/14/21 05:53 Dimorphic RBCs Not Reportable 11/14/21 05:53 Polychromasia Not Reportable 11/14/21 05:53 Hypochromasia Not Reportable 11/14/21 05:53 Poikilocytosis Not Reportable 11/14/21 05:53 Anisocytosis Not Reportable 11/14/21 05:53 Microcytosis Not Reportable 11/14/21 05:53 Macrocytosis Not Reportable 11/14/21 05:53 Spherocytes Not Reportable 11/14/21 05:53 Pappenheimer Bodies Not Reportable 11/14/21 05:53 Sickle Cells Not Reportable 11/14/21 05:53 Target Cells Not Reportable 11/14/21 05:53 Tear Drop Cells Not Reportable 11/14/21 05:53 Ovalocytes Not Reportable 11/14/21 05:53 Helmet Cells Not Reportable 11/14/21 05:53 Taylor-[place] Bodies Not Reportable 11/14/21 05:53 [place] Rings Not Reportable 11/14/21 05:53 [place] Cells Not Reportable 11/14/21 05:53 Bite Cells Not Reportable 11/14/21 05:53 Crenated Cell Not Reportable 11/14/21 05:53 Elliptocytes Not Reportable 11/14/21 05:53 Acanthocytes (Spur) 1+ 11/14/21 05:53 Rouleaux Not Reportable 11/14/21 05:53 Hemoglobin C Crystals Not Reportable 11/14/21 05:53 Schistocytes Not Reportable 11/14/21 05:53 Malaria parasites Not Reportable 11/14/21 05:53 Rocky Bodies Not Reportable 11/14/21 05:53 Hem Pathologist Commnt No 11/14/21 05:53 Sodium 140 mmol/L (137-145) 11/15/21 05:22 Potassium 4.7 mmol/L (3.6-5.0) 11/15/21 05:22 Chloride 102.6 mmol/L (98-107) 11/15/21 05:22 Carbon Dioxide 17 mmol/L (22-30) L 11/15/21 05:22 Anion Gap 25 mmol/L 11/15/21 05:22 BUN 78 mg/dL (7-17) H 11/15/21 05:22 Creatinine 2.9 mg/dL (0.6-1.2) H 11/15/21 05:22 Estimated GFR 15 ml/min 11/15/21 05:22 BUN/Creatinine Ratio 27 % 11/15/21 05:22 Glucose 265 mg/dL (65-100) H 11/15/21 05:22 POC Glucose 218 mg/dL (70-105) H 11/15/21 11:46 Lactic Acid 4.80 mmol/L (0.7-2.0) H* 11/14/21 23:33 Calcium 7.9 mg/dL (8.4-10.2) L 11/15/21 05:22 Total Bilirubin 1.00 mg/dL (0.1-1.2) 11/13/21 09:20 AST 11 units/L (5-40) 11/13/21 09:20 ALT 12 units/L (7-56) 11/13/21 09:20 Alkaline Phosphatase 100 units/L (35-129) 11/13/21 09:20 Ammonia 204.0 umol/L (25-60) H 11/13/21 09:20 Total Creatine Kinase 82 units/L (30-135) 11/13/21 09:20 CK-MB (CK-2) 4.0 ng/mL (0.0-4.0) 11/13/21 09:20 CK-MB (CK-2) Rel Index 4.8 (0-4) H 11/13/21 09:20 Troponin T < 0.010 ng/mL (0.00-0.029) 11/13/21 09:20 Total Protein 7.3 g/dL (6.3-8.2) 11/13/21 09:20 Albumin 3.6 g/dL (3.9-5) L 11/13/21 09:20 Albumin/Globulin Ratio 1.0 % 11/13/21 09:20 TSH 1.300 mlU/mL (0.270-4.200) 11/13/21 09:20 Free T4 1.93 ng/dL (0.76-1.46) H 11/13/21 09:20 Urine Color Yellow (Yellow) 11/13/21 11:25 Urine Turbidity Slightly-cloudy (Clear) 11/13/21 11:25 Urine pH 5.0 (5.0-7.0) 11/13/21 11:25 Ur Specific [place] 1.020 (1.003-1.030) 11/13/21 11:25 Urine Protein <15 mg/dl mg/dL (Negative) 11/13/21 11:25 Urine Glucose (UA) 50 mg/dL (Negative) 11/13/21 11:25 Urine Ketones Tr mg/dL (Negative) 11/13/21 11:25 Urine Blood Neg (Negative) 11/13/21 11:25 Urine Nitrite Neg (Negative) 11/13/21 11:25 Urine Bilirubin Neg (Negative) 11/13/21 11:25 Urine Urobilinogen < 2.0 mg/dL (<2.0) 11/13/21 11:25 Ur Leukocyte Esterase Neg (Negative) 11/13/21 11:25 Urine WBC (Auto) 8.0 /HPF (0.0-6.0) H 11/13/21 11:25 Urine RBC (Auto) 2.0 /HPF (0.0-6.0) 11/13/21 11:25 U Epithel Cells (Auto) 32.0 /HPF (0-13.0) H 11/13/21 11:25 Hyaline Casts 130 /LPF 11/13/21 11:25 Urine Mucus 2+ /HPF 11/13/21 11:25 Plasma/Serum Alcohol < 0.01 % (0-0.07) 11/13/21 09:20 SARS-CoV-2 (PCR) Negative (Negative) 11/14/21 13:25 Blood Type A POSITIVE 11/13/21 12:23 Antibody Screen Negative 11/13/21 12:23 Microbiology: Microbiology 11/13/21 12:23 Peripheral/Venous Blood Culture - Preliminary NO GROWTH AFTER 24 HOURS 11/13/21 12:23 Peripheral/Venous Blood Culture - Preliminary NO GROWTH AFTER 24 HOURS Stoner/IV: Voiding Method Indwelling Catheter Active Medications - Current Medications Current Medications: Generic Name Dose Route Start Last Admin Trade Name Freq PRN Reason Stop Dose Admin Acetaminophen 650 mg 11/13/21 12:07 Acetaminophen 325 Mg Tab PO Q4H PRN Pain MILD(1-3)/Fever >100.5/GARRIDO Acetaminophen 650 mg 11/13/21 12:07 Acetaminophen 325 Mg Tab PO Q6H PRN Pain, Mild (1-3) Albuterol 2.5 mg 11/13/21 12:07 Albuterol 2.5 Mg/3 Ml Nebu IH Q4HRT PRN Shortness Of Breath Dextrose 50 ml 11/14/21 08:58 Dextrose 50% In Water (25gm) 50 Ml Syringe IV Q30MIN PRN Hypoglycemia Protocol Hydromorphone HCl 0.25 mg 11/13/21 12:07 Hydromorphone 0.5 Mg/0.5 Ml Inj IV Q4H PRN Pain, Moderate (4-6) Hydromorphone HCl 0.5 mg 11/13/21 12:07 Hydromorphone 0.5 Mg/0.5 Ml Inj IV Q13H PRN Pain , Severe (7-10) Sodium Chloride 1,000 mls @ 75 mls/hr 11/13/21 22:30 11/15/21 09:58 Nacl 0.9% 1000 Ml IV 75 mls/hr DIRECT MANUEL Administration Levofloxacin/Dextrose 750 mg in 150 mls @ 100 mls/hr 11/16/21 15:00 Levaquin 750mg/150ml IV Q48H MANUEL Protocol Insulin Glargine 10 units 11/15/21 08:00 11/15/21 08:00 Insulin Glargine 100 Units/Ml SUB-Q 10 units QAMDIAB MANUEL Administration Insulin Human Lispro 0 unit 11/14/21 12:00 11/15/21 12:00 Insulin Lispro 100 Unit/Ml SUB-Q 3 unit Q6HR MANUEL Administration Protocol Lorazepam 1 mg 11/13/21 12:07 11/14/21 12:48 Lorazepam 2 Mg/Ml Vial IV 1 mg Q4H PRN Administration Agitation Ondansetron HCl 4 mg 11/13/21 12:07 11/14/21 15:29 Ondansetron 4 Mg/2 Ml Inj IV 4 mg Q8H PRN Administration Nausea And Vomiting Oxycodone/Acetaminophen 1 tab 11/13/21 12:07 Oxycodone /Acetaminophen 5-325mg Tab PO Q16H PRN Pain, Moderate (4-6) Sodium Chloride 10 ml 11/13/21 22:00 11/15/21 09:57 Sodium Chloride 0.9% 10 Ml Flush Syringe IV 10 ml BID MANUEL Administration Sodium Chloride 10 ml 11/13/21 12:07 Sodium Chloride 0.9% 10 Ml Flush Syringe IV PRN PRN LINE FLUSH
[2021-11-15] MEDS ORDERED: VANCOMYCIN/NS 1 GM/250 ML 1 GM/250 ML BAG IV ONE (20:00)
[2021-11-16] MEDS: INSULIN LISPRO 100 UNIT/ML SUB-Q SCH ×3 (00:49→12:10)
--- NOTE | 2021-11-16 08:02 | Discharge Summary ---
Providers - Providers Date of Admission: 11/13/21 12:07 Date of discharge: 11/16/21 Attending physician: JAQUELIN MARCANO MD Primary care physician: JD COLINDRES MD Hospitalization Reason for admission: acute encephalopathy Condition: Fair Hospital course: Patient is a 86-year-old female with a history of Alzheimer dementia, diabetes and hypertension who presented from assisted living facility with unresponsiveness. On admission, patient was lethargic. CT of the head was negative for acute abnormality. Chest x-ray showed possible early bibasilar infiltrates. She also had SKIP which worsened. Discussion was had with patient's next of kin and daughter Angelina who did not want aggressive treatment and opted to discharge the patient home with hospice services. Once services were arranged, patient was discharged back to assisted living facility. Disposition: 50 HOSPICE/HOME Final Discharge Diagnosis (Prints w/discharge instructions): Sepsis. Urinary tract infection. Acute metabolic encephalopathy. Alzheimer's dementia. Acute kidney injury secondary to vasomotor nephropathy. Anion gap metabolic acidosis. Lactic acidosis. [id number] type 2 diabetes with hyperglycemia. Chronic debility Time spent for discharge: 30 minutes Core Measure Documentation - Palliative Care Palliative Care/ Comfort Measures: Hospice Care - Core Measures Any of the following diagnoses?: none Exam - Physical Exam Narrative exam: GENERAL: Well-developed well-nourished. In no acute distress. HEENT: Nasal cannula in place at 2 L/min. Left eyelid with ecchymosis. Mouth with to what appears to be old dried blood NECK: Supple. CHEST/LUNGS: CTAB on room air HEART/CARDIOVASCULAR: RRR. No murmur, rubs or gallops appreciated. ABDOMEN: +BS. NT/ND. SKIN: Bilateral upper extremity ecchymoses. NEURO: Unable to assess. MUSCULOSKELETAL: No joint effusion EXTREMITIES: No cyanosis, clubbing or edema. PSYCH: Unable to assess due to altered mental status. - Constitutional Vitals: Temp Pulse Resp BP Pulse Ox 96.8 F L 89 22 108/38 95 11/16/21 04:47 11/16/21 04:47 11/16/21 04:47 11/16/21 04:47 11/16/21 06:52 Plan Care Plan Goals: Please call the hospice agency with any patient needs. Follow up with: JD COLINDRES MD [Primary Care Provider] - 3-5 Days
[2021-11-16] MEDS: INSULIN GLARGINE 100 UNITS/ML SUB-Q SCH (08:14)
[2021-11-16] MEDS: SODIUM CHLORIDE 0.9% 1000 ML 1,000 ML IV SCH (09:14)
[2021-11-16 12:03] VITALS: BP 102/32
== END 2021-11-16 14:29 | disposition hospice, home (50) | DRG 871 ==
LOC: ED 07:47 → 3A 12:07
PROVIDERS: ADMIT Internal Medicine; ATTEND Student in an Organized Health Care Education/Training Program
DX: A41.9 Sepsis, unspecified organism (principal); J18.9 Pneumonia, unspecified organism; N17.0 Acute kidney failure with tubular necrosis; G92.8 Other toxic encephalopathy; N39.0 Urinary tract infection, site not specified; E87.2 Acidosis; Z66 Do not resuscitate; Z20.822 Contact with and (suspected) exposure to COVID-19; I10 Essential (primary) hypertension; E11.65 Type 2 diabetes mellitus with hyperglycemia; K72.90 Hepatic failure, unspecified without coma; G30.9 Alzheimer's disease, unspecified; F02.80 Dementia in other diseases classified elsewhere, unspecified severity, without behavioral disturbance, psychotic disturbance, mood disturbance, and anxiety; Z79.899 Other long term (current) drug therapy; Z82.49 Family history of ischemic heart disease and other diseases of the circulatory system; Z74.01 Bed confinement status
CPT/HCPCS: 36415; 70450; 71045; 80048; 80053; 80202; 80320; 81001; 82140; 82550; 82553; 82962; 84439; 84443; 84484; 85007; 85025; 85027; 86850; 86900; 86901; 87040; 93005; 94640; 94760; G0378; Q9967; G0480; J1815; J1956; J2060; J2405; J3370; J7030; U0003